=== PATIENT | female | born 1945 | race Caucasian/White ===

== ENCOUNTER 2017-04-23 23:18 | Emergency (ER) | payer MEDICARE ==
[~2017-04-23] VITALS: Ht 157.5 cm; Wt 92.3 kg
[2017-04-23 23:18] VITALS: BP 115/65
[~2017-04-23 23:18] MED LIST: ASPI-630 PO; BUSP10TA PO; CHOL500016 PO; CHOL500021 PO; CLON0.1T PO; CLON0.5T PO; CLOP75TA57 PO; CYAN10002 IJ; FLUO20CA16 PO; HYDR-2758 PO; HYDR12.53 PO; LISI-334 PO; LISI1TAB5 PO; METF500T9 PO; MIRT15TA PO; OLAN2.5T3 PO; PANT40TA3 PO; QUET25TA PO; ROPI0.5T PO; SIMV40TA3 PO
[2017-04-23] MEDS ORDERED: methylPREDNISolone SOD SUCC PF 125 MG/2 ML VIAL. IV ONE (23:30)
[2017-04-23] MEDS ORDERED: IPRATRPIUM/ALBUTEROL 0.5/2.5MG 3 ML NEBU. NEB ONE (23:30)
[2017-04-23] MEDS ORDERED: DOXYCYCLINE HYCLATE 100 MG in IV DEXTROSE 5% 100 ML IV ONE (23:30)
[2017-04-23] MEDS ORDERED: KETOROLAC 30 MG/ML VIAL. IV ONE (23:30)
[2017-04-23] MEDS ORDERED: ACETAMINOPHEN 325 MG TABLET PO ONE (23:30)
--- NOTE | 2017-04-24 00:33 | PHYS DOC ---
Past History Past Medical History: Anxiety, CVA, Diabetes, Hypertension Past Surgical History: Hysterectomy Alcohol Use: None Drug Use: None Adult General Chief Complaint Chief Complaint: BACK PAIN OR INJURY HPI HPI Patient is a 71-year-old female who presents to the ER today secondary to falling out of her recliner. Patient reports after falling of her recliner the recliner tipped over and hurt her. Patient reports pain to her lower back. Patient reports she has been able to stand since the episode. Patient denies any other symptomatology at this time. Patient has any head trauma. Patient has a loss of consciousness nausea vomiting double vision or blurred vision or altered mentation. Patient has any fevers shakes chills cough cold rhinorrhea. Patient has any abdominal discomfort or discharge her upper or lower semis. Patient has a loss of bowel or bladder function. Patient presents here today requesting assistance with pain management secondary to falling out of her recliner. She denies any hip pain or discomfort. Review of systems: Constitutional: Denies fever or chills Eyes: Denies change in visual acuity, redness, or eye pain HENT: Denies nasal congestion or sore throat Respiratory: Denies cough or shortness of breath All other systems were reviewed and found to be within normal limits, except as documented in this note. Physical exam: Constitutional: Well developed, well nourished, no acute distress, non-toxic appearance. HENT: Normocephalic, atraumatic, bilateral external ears normal, nose normal. Eyes: PERRLA, EOMI, conjunctiva normal, no discharge. Neck: Normal range of motion, no tenderness, supple, no stridor. Cardiovascular: Heart rate regular rhythm, Lungs & Thorax: Bilateral breath sounds clear to auscultation Abdomen: No abdominal distention. Skin: Warm, dry, no erythema, no rash. Back: Normal spinal curvature Extremities: No tenderness, no cyanosis, no clubbing, ROM intact, no edema. Neurologic: Alert and oriented X 3, normal motor function, normal sensory function, no focal deficits noted. Psychologic: Affect normal, judgement normal, mood normal. Patient's ER physical exam was most remarkable: Patient with mild diffuse tenderness to palpation to her lower back and her bilateral paraspinal area. Patient has no point CT or L-spine tenderness. Of note patient has multiple scratches and abrasions to her back which she reports her self-inflicted secondary to mental disturbances secondary to issues that she's had with her 2 granddaughters telling her that she is no longer family. Patient reports that this is a chronic condition for her and she wears gloves that she does not harm herself. She reports her physician is aware of this and he is assisting her with her. Patient denies any concerns regarding suicidality. Patient has no energy palpation to her left or right hip. Pelvis is stable to rock. Patient is able to flex and extend her lower 70s without significant difficulties or pain. Assessment and plan: 1. Low back pain secondary to fall out of a recliner. Patient reports fell on carpeted floor. Patient is neurologically intact. Patient be given morphine per her request and will be stable for discharged home. Patient has a safe ride home and feel safe going home at this time. Present with any signs or symptoms of an acute fracture. X-ray was offered however patient is just requesting pain medicines that she get some rest tonight. Morphine 4 mg IM is given. Current Medications Current Medications Current Medications Medications (Trade) Dose Ordered Sig/Bria Start Time Stop Time Status Last Admin Dose Admin Acetaminophen (Tylenol) 650 mg 1X ONCE 04/23/17 23:30 04/23/17 23:37 DC Albuterol/ Ipratropium (Duoneb) 3 ml 1X ONCE 04/23/17 23:30 04/23/17 23:37 DC Doxycycline Hyclate 100 mg/ Dextrose 100 ml @ 50 mls/hr 1X ONCE 04/23/17 23:30 04/23/17 23:37 DC Ketorolac Tromethamine (Toradol) 30 mg 1X ONCE 04/23/17 23:30 04/23/17 23:37 DC Methylprednisolone Sodium Succinate (SOLU-Medrol 125MG VIAL) 125 mg 1X ONCE 04/23/17 23:30 04/23/17 23:37 DC Allergies Allergies Allergies Coded Allergies Type Severity Reaction Last Updated Verified Penicillins Allergy Intermediate rash 03/03/14 Yes amitriptyline Allergy Intermediate rash 03/03/14 Yes lactose Allergy Intermediate GI UPSET 03/03/14 Yes prochlorperazine Allergy Intermediate muscle contraction 02/25/14 Yes I S O L A T I O N *CONTACT* Allergy Unknown 03/10/15 No EKG EKG [] Radiology/Procedures Radiology/Procedures [] Course & Med Decision Making Course & Med Decision Making Pertinent Labs and Imaging studies reviewed. (See chart for details) [] Dragon Disclaimer Dragon Disclaimer This electronic medical record was generated, in whole or in part, using a voice recognition dictation system. Departure Departure: Impression: Primary Impression: Low back pain Additional Impression: Fall Disposition: HOME, SELF-CARE Condition: IMPROVED Referrals: AMARI BETHEA MD (PCP) Patient Instructions: Back Pain, Adult Additional Instructions: You were seen and evaluated in the ER secondary to falling down having pain to her lower back. You'll be given an injection of morphine. Please return to the ER if your pain returns or if they have any other concerns Problem Qualifiers PEDRITO VALENZUELA MD Apr 24, 2017 00:33
[2017-04-24] MEDS ORDERED: MORPHINE SULFATE 5 MG/ML SYRINGE. ONE (00:53)
[2017-04-24] MEDS ORDERED: MORPHINE SULFATE 10 MG/ML SYRINGE. IM ONE (01:00)
[2017-04-24] MEDS ORDERED: ONDANSETRON ODT 4 MG TAB.RAPDIS PO ONE (01:00)
[2017-04-24] MEDS ORDERED: MORPHINE SULFATE 5 MG/ML SYRINGE. IM ONE (01:15)
== END 2017-04-24 01:20 | disposition home or self-care (01) ==
LOC: ER 23:18
DX: M54.5 Low back pain (principal); R41.82 Altered mental status, unspecified; R11.2 Nausea with vomiting, unspecified; E11.9 Type 2 diabetes mellitus without complications; I10 Essential (primary) hypertension; F41.9 Anxiety disorder, unspecified; Z86.73 Personal history of transient ischemic attack (TIA), and cerebral infarction without residual deficits; Z88.0 Allergy status to penicillin; Z88.8 Allergy status to other drugs, medicaments and biological substances; Z91.041 Radiographic dye allergy status; Z91.011 Allergy to milk products; W07.XXXA Fall from chair, initial encounter; Y93.89 Activity, other specified; Y99.8 Other external cause status; Y92.89 Other specified places as the place of occurrence of the external cause
CPT/HCPCS: 96372; 99283; J2270; Q0162

== ENCOUNTER 2018-04-17 17:58 | Inpatient (IN) | payer MEDICARE ==
[~2018-04-17] VITALS: Ht 157.5 cm; Wt 85.7 kg
[~2018-04-17 17:58] MED LIST changes: +HYDR-2155 PO; -HYDR-2758 PO; -HYDR12.53 PO; +HYDR12.572 PO
[2018-04-17] MEDS ORDERED: IV NORMAL SALINE 1,000ML 1,000 ML IV SCH (18:03)
--- NOTE | 2018-04-17 18:03 | ED.ADGEN ---
Past History Past Medical History: Anxiety, CVA, Diverticulitis, Diabetes, Hypertension, Other Past Surgical History: Hysterectomy Alcohol Use: None Drug Use: None Adult General Chief Complaint Chief Complaint ".. I ve been having some pain today.. down here... in my belly... It started after some nasty filling station food... I think it was a the nasty... Macaroni and cheese.... I did eat the [employer].... But denied had about a teaspoon of bright red blood and last stool..... I had bleeding down there before from hemorrhoids and diverticula... And some history of diverticulosis...." [facility] HPI Patient is a 72 year old female who presents with above hx and complaints lower pelvic pain more on the left and right red bleeding with last stool. Bleeding consistent approximately a teaspoon of bright red blood. Patient denies any constipation or diarrhea. Patient states she did have intake of some questionable food earlier in the day. No history of trauma. Patient does not remember her last colonoscopy. Patient denies any travel or specific ill contacts. Patient follows with Dr. Baker. Review of Systems Review of Systems Constitutional: Denies fever or chills [] Eyes: Denies change in visual acuity, redness, or eye pain [] HENT: Denies nasal congestion or sore throat [] Respiratory: Denies cough or shortness of breath [] Cardiovascular: No additional information not addressed in HPI [] GI: Denies abdominal pain, nausea, vomiting, complaints of bright red blood with last stool Musculoskeletal: Denies back pain or joint pain [] Integument: Denies rash or skin lesions [] Neurologic: Denies headache, focal weakness or sensory changes [] Endocrine: Denies polyuria or polydipsia [] All other systems were reviewed and found to be within normal limits, except as documented in this note. Family History Family History Noncontributory Current Medications Current Medications See nursing for home meds Allergies Allergies Allergies Coded Allergies Type Severity Reaction Last Updated Verified Penicillins Allergy Intermediate rash 03/03/14 Yes amitriptyline Allergy Intermediate rash 03/03/14 Yes lactose Allergy Intermediate GI UPSET 03/03/14 Yes prochlorperazine Allergy Intermediate muscle contraction 02/25/14 Yes I S O L A T I O N *CONTACT* Allergy Unknown 03/10/15 No Physical Exam Physical Exam Constitutional: Moderately acute distress, non-toxic appearance. [] HENT: Normocephalic, atraumatic, bilateral external ears normal, oropharynx moist, no oral exudates, nose normal. []Edentulous Eyes: PERRLA, EOMI, conjunctiva normal, no discharge. [] Neck: Normal range of motion, no tenderness, supple, no stridor. [] Cardiovascular:Heart rate regular rhythm, no murmur []PMI to the left Lungs & Thorax: Bilateral breath sounds breath sounds equal at apexes on auscultation [] Abdomen: Bowel sounds normal, soft, left lower pelvic tenderness, no masses, no pulsatile masses. [] Rectal shows hemorrhoids and a small fissure. Nose significant amount of bright red blood appreciated on rectal exam . Old surgery scars on abdomen. Mild rebound to left lower quadrant. Skin: Warm, dry, no erythema, no rash. Poor turgor Back: No tenderness, no CVA tenderness. Scoliosis Extremities: No tenderness, no cyanosis, no clubbing, ROM intact, no edema. [] arthritic changes Neurologic: Alert and oriented X 3, normal motor function, normal sensory function, no focal deficits noted. [] Psychologic: Affect anxious, judgement normal, mood normal. [] Current Patient Data Vital Signs Vital Signs Date Time Temp Pulse Resp B/P (MAP) Pulse Ox O2 Delivery O2 Flow Rate FiO2 04/17/18 18:00 97.6 77 16 100 Room Air EKG EKG My interpretation of EKG shows a sinus rhythm at 74 bpm. There is some left atrial enlargement. No findings acute STEMI with contralateral changes. There is some baseline artifact.. [] Radiology/Procedures Radiology/Procedures My interpretation of chest x-ray shows no significant findings on cardio and pulmonary roe. No lobar consolidation, pneumothorax or infiltrate. She does have borderline enlarged cardiac silhouette. Does have a very large hiatal hernia. Abdomen portion film shows no obvious bowel obstruction. Nonspecific bowel gas pattern. Does have marked lumbar scoliosis and degenerative joint changes. See formal report when available.[] Course & Med Decision Making Course & Med Decision Making Pertinent Labs and Imaging studies reviewed. (See chart for details). Discussed presentation, testing and treatment plan with . Plan admission for serial checks for active GI bleed. Serial checks of elevated troponin. Will keep nothing by mouth pending possible further evaluation of out let bleeding.. Patient Tiffanie Pt. admitted to Dr. Rogers [] Final Impression Final Impression 1. Hx. of GI Bleeding[]-out let or lower GI 2. Hx. Hemorrhoids 3. Hx. Diverticuli -colon 4. Elevated troponin 0.060 5. Hx. hiatal hernia 6. Hx. DM 7. Elevated BUN/ Creat 24/1.2 8. UTI Dragon Disclaimer Dragon Disclaimer This electronic medical record was generated, in whole or in part, using a voice recognition dictation system. ARJUN GARCIA MD Apr 17, 2018 18:03
--- NOTE | 2018-04-17 18:17 | EKG ---
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
--- NOTE | 2018-04-17 18:24 | RAD ---
Acute abdomen series HISTORY: Abdominal pain, bloody stools COMPARISON: November 10, 2015 chest radiograph and September 26, 2010 KUB FINDINGS: Single view of the chest and single supine and upright views of the abdomen are submitted. There is again large hiatal hernia. Heart size is similar. There is lung hyperexpansion. There is no lobar consolidation, pleural fluid, pneumothorax. No free air is identified. There is lumbar levoscoliosis. There is a nonobstructive bowel gas pattern. IMPRESSION: 1. There is a nonobstructive bowel gas pattern. There is a fairly large hiatal hernia. Electronically signed by: Dereck Park MD (04/17/2018 6:20 PM) [facility]
[2018-04-17] MEDS ORDERED: ONDANSETRON PF 4 MG/2 ML VIAL. IV ONE (18:30)
[2018-04-17] MEDS ORDERED: FAMOTIDINE 20 MG/2 ML VIAL IVP ONE (18:30)
[2018-04-17 18:51] LABS: BASO # 0.1 x10^3/uL (0.0-0.2); BASO % 1 % (0-3); EOS # 0.6 x10^3/uL (0.0-0.7); EOS % 10 % (0-3); HEMATOCRIT 43.4 % (36.0-47.0); HEMOGLOBIN 14.5 g/dL (12.0-15.5); LYMPH # 0.9 x10^3/uL (1.0-4.8); LYMPH % 15 % (24-48); MEAN CORPUSCULAR HEMOGLOBIN 31 pg (25-35); MEAN CORPUSCULAR HGB CONC 33 g/dL (31-37); MEAN CORPUSCULAR VOLUME 94 fL (79-100); MONO # 0.5 x10^3/uL (0.0-1.1); MONO % 8 % (0-9); NEUT # 4.1 x10^3uL (1.8-7.7); NEUT % 67 % (31-73); PLATELET COUNT 295 x10^3/uL (140-400); RED BLOOD COUNT 4.63 x10^6/uL (3.50-5.40); RED CELL DISTRIBUTION WIDTH 13.5 % (11.5-14.5); WHITE BLOOD COUNT 6.1 x10^3/uL (4.0-11.0)
[2018-04-17 19:02] LABS: ALBUMIN 3.4 g/dL (3.4-5.0); CALCIUM 9.7 mg/dL (8.5-10.1); CREATININE 1.2 mg/dL (0.6-1.0); DIRECT BILIRUBIN 0.1 mg/dL (0.0-0.2); GFR 44.3; POTASSIUM 4.4 mmol/L (3.5-5.1); TOTAL BILIRUBIN 0.3 mg/dL (0.2-1.0); TOTAL PROTEIN 6.8 g/dL (6.4-8.2)
[2018-04-17 19:29] LABS: BACTERIA,URINE FEW /HPF (0-FEW); BILIRUBIN,URINE NEG (NEG); CLARITY,URINE HAZY; COLOR,URINE YELLOW; GLUCOSE,URINE NEG (NEG); NITRITE,URINE NEG (NEG); SQUAMOUS EPITHELIAL CELL,UR MANY /LPF; UROBILINOGEN,URINE 0.2 mg/dL (0.2 mg/dL)
[2018-04-17] MEDS ORDERED: ONDANSETRON PF 4 MG/2 ML VIAL. IV PRN (19:30)
[2018-04-17] MEDS ORDERED: ACETAMINOPHEN 500 MG TABLET PO ONE (20:00)
[2018-04-17 20:30] VITALS: BP 157/80
[2018-04-17] MEDS ORDERED: DIPH25CA58 PO (20:54)
[2018-04-17] MEDS ORDERED: CARV6.2541 PO (20:56)
[2018-04-17] MEDS ORDERED: ASPI81TA59 PO (20:56)
[2018-04-17] MEDS ORDERED: DOCU-109 PO (20:56)
[2018-04-17] MEDS ORDERED: FERR240T11 PO (20:57)
[2018-04-17] MEDS ORDERED: levoFLOXacin 500 MG TABLET PO ONE (21:00)
[2018-04-17] MEDS ORDERED: SMZ/TMP 800/160MG TABLET. PO SCH (21:00)
[2018-04-17] MEDS: FAMOTIDINE 20 MG/2 ML VIAL IVP SCH (21:03)
[2018-04-17] MEDS: IV RINGERS SOLUTION,LACTATED 1,000 ML IV SCH (21:03)
[2018-04-17] MEDS: LACTOBACILLUS RHAMNOSUS GG 1 CAPSULE. PO SCH (21:03)
[2018-04-17] MEDS: metroNIDAZOLE 500 MG TABLET PO SCH (21:03)
[2018-04-17] MEDS ORDERED: clonazePAM 0.5 MG TABLET PO PRN (22:00)
[2018-04-17 22:12] LABS: FECAL OB PT POSITIVE (NEG)
[2018-04-17] MEDS ORDERED: DOCUSATE SODIUM 100 MG CAPSULE PO PRN (22:15)
[2018-04-17] MEDS: busPIRone 10 MG TABLET. PO SCH (22:20)
[2018-04-17] MEDS: SIMVASTATIN 40 MG TABLET. PO SCH (22:20)
[2018-04-17] MEDS: diphenhydrAMINE HCL 25 MG CAPSULE PO SCH (22:21)
[2018-04-17] MEDS: QUEtiapine 25 MG TABLET. PO SCH (22:21)
[2018-04-17] MEDS: rOPINIRole 0.5 MG TABLET. PO SCH (22:21)
[2018-04-17] MEDS: cloNIDine HCL 0.1 MG TABLET PO SCH (22:22)
[2018-04-17] MEDS ORDERED: ENOXAPARIN 40 MG/0.4 ML SYRINGE. SQ SCH (23:00)
[2018-04-17 23:08] VITALS: BP 142/78
[2018-04-18] MEDS: IV RINGERS SOLUTION,LACTATED 1,000 ML IV SCH ×4 (04:00→20:30)
[2018-04-18] MEDS: metroNIDAZOLE 500 MG TABLET PO SCH ×3 (05:06→21:27)
[2018-04-18 05:08] VITALS: BP 157/88
[2018-04-18 06:34] LABS: CREATININE 0.9 mg/dL (0.6-1.0); GFR 61.7; POTASSIUM 3.5 mmol/L (3.5-5.1)
[2018-04-18 06:46] LABS: BASO # 0.1 x10^3/uL (0.0-0.2); BASO % 1 % (0-3); EOS # 0.5 x10^3/uL (0.0-0.7); EOS % 8 % (0-3); HEMATOCRIT 40.7 % (36.0-47.0); HEMOGLOBIN 13.3 g/dL (12.0-15.5); LYMPH # 1.1 x10^3/uL (1.0-4.8); LYMPH % 19 % (24-48); MEAN CORPUSCULAR HEMOGLOBIN 31 pg (25-35); MEAN CORPUSCULAR HGB CONC 33 g/dL (31-37); MEAN CORPUSCULAR VOLUME 96 fL (79-100); MONO # 0.5 x10^3/uL (0.0-1.1); MONO % 8 % (0-9); NEUT # 3.9 x10^3uL (1.8-7.7); NEUT % 64 % (31-73); PLATELET COUNT 249 x10^3/uL (140-400); RED BLOOD COUNT 4.26 x10^6/uL (3.50-5.40); RED CELL DISTRIBUTION WIDTH 13.5 % (11.5-14.5); WHITE BLOOD COUNT 6.1 x10^3/uL (4.0-11.0)
[2018-04-18] MEDS ORDERED: metFORMIN 500 MG TABLET PO SCH (08:00)
[2018-04-18] MEDS ORDERED: ASPIRIN 81 MG TAB.CHEW PO SCH (08:00)
[2018-04-18] MEDS ORDERED: clonazePAM 1 MG TABLET PO PRN (08:30)
[2018-04-18] MEDS: FAMOTIDINE 20 MG/2 ML VIAL IVP SCH (08:47)
[2018-04-18] MEDS: rOPINIRole 0.5 MG TABLET. PO SCH ×3 (09:00→21:14)
[2018-04-18] MEDS ORDERED: IOHEXOL 300 MG/ML 75 ML VIAL. IV ONE (09:00)
[2018-04-18] MEDS ORDERED: IOHEXOL 240 MG/ML 50ML VIAL. PO ONE (09:00)
[2018-04-18] MEDS ORDERED: CONTRAST GIVEN MC PRN (09:00)
[2018-04-18] MEDS: QUEtiapine 25 MG TABLET. PO SCH ×4 (09:00→21:15)
--- NOTE | 2018-04-18 10:14 | PDOC2 ---
CONSULT Date of Admission DATE: 04/18/18 TIME: 10:13 Reason for Consult: elevated trop Problem List Problems Medical Problems: (1) GI bleeding Status: Acute (2) Urinary tract infection Status: Acute History of Present Illness Ms Harris is a 72 year old female who presented to the ED with complaints of pelvic, lower abdominal pain with bright red blood in stool. Routine troponin was mildly elevated so consult was called. She denies any chest pain, dyspnea, congestive symptoms, palpitations, lightheadedness or syncope. She reports abd pain that started after eating some food obtained from a gas station. She denies vomiting or diarrhea. She denies fever or chills. Today she reports feeling "fine". She was noted to have a UTI and is currently on antibiotics for this. She is a fairly poor historian and says her daughter keeps track of her healthcare issues. Daughter is expected in about an hour. Cardiovascular: HTN, hyperipidemia Pulmonary: Other (TAMMIE on cpap) CENTRAL NERVOUS SYSTEM: CVA, Dementia, Migraine, TIA GI: GERD Heme/Onc: Anemia NOS Psych: Anxiety, Bipolar, Depression, Other (seof mutilation) Infectious disease: Other (MRSA) Endocrine: Diabetes Past Surgical History: Appendectomy, Tonsillectomy, Hysterectomy Family History: Cancer Social History Remote smoking, no illicit drugs, no significant ETOH Current Medications Current Medications Sodium Chloride 1,000 ml @ 100 mls/hr Q10H IV Last administered on 04/17/18at 18:53; Start 04/17/18 at 18:03; Stop 04/18/18 at 04:02; Status DC Ondansetron HCl (Zofran) 4 mg 1X ONCE IV Last administered on 04/17/18at 18:57 ; Start 04/17/18 at 18:30; Stop 04/17/18 at 18:31; Status DC Famotidine (Pepcid Vial) 20 mg 1X ONCE IVP Last administered on 04/17/18at 18: 58; Start 04/17/18 at 18:30; Stop 04/17/18 at 18:31; Status DC Ondansetron HCl (Zofran) 4 mg PRN Q4HRS PRN IV NAUSEA/VOMITING; Start at 19:30; Stop 04/18/18 at 19:29 Lactated Ringer's 1,000 ml @ 160 mls/hr Q6H15M IV Last administered on at 08:48; Start 04/17/18 at 19:30 Famotidine (Pepcid Vial) 20 mg BID IVP Last administered on 04/18/18at 08:47; Start 04/17/18 at 21:00 Acetaminophen (Tylenol) 1,000 mg 1X ONCE PO Last administered on 04/17/18at 20 :10; Start 04/17/18 at 20:00; Stop 04/17/18 at 20:01; Status DC Trimethoprim/ Sulfamethoxazole (Bactrim Ds) 1 tab BID PO Last administered on 04/17/18at 21:03; Start 04/17/18 at 21:00; Stop 04/18/18 at 08:31; Status DC Levofloxacin (Levaquin) 500 mg 1X ONCE PO Last administered on 04/17/18at 20: 12; Start 04/17/18 at 21:00; Stop 04/17/18 at 21:01; Status DC Metronidazole (Flagyl) 500 mg Q8HRS PO Last administered on 04/18/18at 05:06; Start 04/17/18 at 22:00 Lactobacillus Rhamnosus (Culturelle) 1 cap BID PO Last administered on at 21:03; Start 04/17/18 at 21:00 Levofloxacin (Levaquin) 250 mg Q24H PO ; Start 04/18/18 at 14:00 Influenza Virus Vaccine (Afluria Trivalent [id number] Syringe) 0.5 ml ONCE ONCE VAX IM ; Start 04/18/18 at 09:00; Stop 04/18/18 at 09:02; Status DC Carvedilol (Coreg) 6.25 mg BIDWMEALS PO ; Start 04/18/18 at 08:00 Clonazepam (KlonoPIN) 0.5 mg PRN Q8HRS PRN PO ANXIETY / AGITATION Last administered on 04/18/18at 06:52; Start 04/17/18 at 22:00; Stop 04/18/18 at 08 :31; Status DC Clonidine HCl (Catapres) 0.1 mg BID PO Last administered on 04/17/18at 22:22; Start 04/17/18 at 23:00 Clopidogrel Bisulfate (Plavix) 75 mg DAILY PO ; Start 04/18/18 at 09:00 Diphenhydramine HCl (Benadryl) 50 mg HS PO Last administered on 04/17/18at 22: 21; Start 04/17/18 at 23:00 Hydrochlorothiazide (Microzide) 12.5 mg DAILY PO ; Start 04/18/18 at 09:00 Simvastatin (Zocor) 40 mg HS PO Last administered on 04/17/18at 22:20; Start 04/17/18 at 23:00 Aspirin (Children'S Aspirin) 81 mg DAILYWBKFT PO ; Start 04/18/18 at 08:00; Stop 04/18/18 at 08:31; Status DC Buspirone HCl (Buspar) 10 mg BID PO Last administered on 04/17/18at 22:20; Start 04/17/18 at 23:00 Docusate Sodium (Colace) 100 mg PRN DAILY PRN PO CONSTIPATION; Start 04/17/18 at 22:15 Ferrous Sulfate (Feosol) 325 mg DAILYWBKFT PO ; Start 04/18/18 at 08:00 Fluoxetine HCl (PROzac) 20 mg DAILY PO ; Start 04/18/18 at 09:00 Metformin HCl (Glucophage) 500 mg BIDWMEALS PO ; Start 04/18/18 at 08:00; Stop 04/18/18 at 08:52; Status DC Pantoprazole Sodium (Protonix) 40 mg DAILYAC PO ; Start 04/18/18 at 07:30 Quetiapine Fumarate (SEROquel) 25 mg QID PO Last administered on 04/17/18at 22: 21; Start 04/17/18 at 23:00 Ropinirole HCl (Requip) 0.5 mg TID PO Last administered on 04/17/18at 22:21; Start 04/17/18 at 23:00 Enoxaparin Sodium (Lovenox 40mg Syringe) 40 mg Q24H SQ Last administered on at 22:22; Start 04/17/18 at 23:00; Stop 04/18/18 at 08:31; Status DC Clonazepam (KlonoPIN) 1 mg PRN Q8HRS PRN PO ANXIETY / AGITATION; Start at 08:30 Acetaminophen (Tylenol) 500 mg PRN Q6HRS PRN PO PAIN / TEMP; Start 04/18/18 at 08:45 Iohexol (Omnipaque 240 Mg/ml) 50 ml 1X ONCE PO Last administered on at 09:50; Start 04/18/18 at 09:00; Stop 04/18/18 at 09:02; Status DC Iohexol (Omnipaque 300 Mg/ml) 75 ml 1X ONCE IV Last administered on at 09:49; Start 04/18/18 at 09:00; Stop 04/18/18 at 09:02; Status DC Metformin HCl (Glucophage) 500 mg BIDWMEALS PO ; Start 04/20/18 at 08:00 Info (Do NOT chart on this entry -- for MONITORING) 1 each PRN DAILY PRN MC SEE COMMENTS; Start 04/18/18 at 09:00; Stop 04/20/18 at 08:59 Active Scripts Active Reported Iron (Ferrous Gluconate) 240 Mg Tablet 240 Mg PO DAILY Children's Aspirin (Aspirin) 81 Mg Tab.chew 81 Mg PO DAILY Colace (Docusate Sodium) 100 Mg Capsule 1 Cap PO DAILY PRN Carvedilol (Carvedilol) 6.25 Mg Tablet 6.25 Mg PO BIDWMEALS Benadryl (Diphenhydramine Hcl) 25 Mg Capsule 50 Mg PO HS Clonidine Hcl 0.1 Mg Tablet 0.1 Mg PO BID LAST DOSE GIVEN: DATE: TIME: NEXT DOSE DUE: DATE: TIME: Plavix (Clopidogrel Bisulfate) 75 Mg Tablet 75 Mg PO DAILY LAST DOSE GIVEN: DATE: TIME: NEXT DOSE DUE: DATE: TIME: Buspirone Hcl 10 Mg Tablet 10 Mg PO BID LAST DOSE GIVEN: DATE: TIME: NEXT DOSE DUE: DATE: TIME: Protonix (Pantoprazole Sodium) 40 Mg Tablet.dr 40 Mg PO DAILY LAST DOSE GIVEN: DATE: TIME: NEXT DOSE DUE: DATE: TIME: Hydrochlorothiazide Capsule (Hydrochlorothiazide) 12.5 Mg Capsule 12.5 Mg PO DAILY LAST DOSE GIVEN: DATE: TIME: NEXT DOSE DUE: DATE: TIME: Quetiapine Fumarate 25 Mg Tablet 25 Mg PO QID LAST DOSE GIVEN: DATE: TIME: NEXT DOSE DUE: DATE: TIME: Metformin Hcl Er (Metformin Hcl) 500 Mg Tab.er.24h 500 Mg PO BID LAST DOSE GIVEN: DATE: TIME: NEXT DOSE DUE: DATE: TIME: Klonopin (Clonazepam) 0.5 Mg Tablet 0.5 Mg PO Q8HRS PRN LAST DOSE GIVEN: DATE: TIME: NEXT DOSE DUE: DATE: TIME: Prozac (Fluoxetine Hcl) 20 Mg Capsule 20 Mg PO DAILY LAST DOSE GIVEN: DATE: TIME: NEXT DOSE DUE: DATE: TIME: Simvastatin 40 Mg Tablet 40 Mg PO HS LAST DOSE GIVEN: DATE: TIME: NEXT DOSE DUE: DATE: TIME: Requip (Ropinirole Hcl) 0.5 Mg Tablet 0.5 Mg PO TID LAST DOSE GIVEN: DATE: TIME: NEXT DOSE DUE: DATE: TIME: Allergies: Coded Allergies: Penicillins (Verified Allergy, Intermediate, rash, 03/03/14) amitriptyline (Verified Allergy, Intermediate, rash, 03/03/14) lactose (Verified Allergy, Intermediate, GI UPSET, 03/03/14) PER PATIENT prochlorperazine (Verified Allergy, Intermediate, muscle contraction, ) I S O L A T I O N *CONTACT* (Unverified Allergy, Unknown, 03/10/15) 7-8-11 +MRSA nasal screen Review of System symptoms as listed otherwise she denies complaints Gastrointestinal: YES: Abdominal Pain Genitourinary: YES: Dysuria, Urinary Frequency/urgency General: Alert, Cooperative, No acute distress HEENT: Atraumatic, EOMI, Mucous membr. moist/pink Lungs: Clear to auscultation Heart: Normal S1, Normal S2, Other (no gallops, clicks or rubs) Abdomen: Normal bowel sounds, Soft, No tenderness Extremities: No cyanosis, No edema, Normal pulses Neuro: Normal speech, Other (gait mildly unsteady while up with PT) Psych/Mental Status: Mental status NL, Mood NL VITALS Vital Signs Date Time Temp Pulse Resp B/P (MAP) Pulse Ox O2 Delivery O2 Flow Rate FiO2 04/18/18 08:00 Room Air 04/18/18 05:08 97.6 70 18 157/88 (111) 95 Labs Laboratory Tests Test 04/17/18 18:13 04/17/18 18:23 04/17/18 18:38 04/17/18 22:00 Stool Occult Blood Positive (NEG) White Blood Count 6.1 x10^3/uL (4.0-11.0) Red Blood Count 4.63 x10^6/uL (3.50-5.40) Hemoglobin 14.5 g/dL (12.0-15.5) Hematocrit 43.4 % (36.0-47.0) Mean Corpuscular Volume 94 fL (79-100) Mean Corpuscular Hemoglobin 31 pg (25-35) Mean Corpuscular Hemoglobin Concent 33 g/dL (31-37) Red Cell Distribution Width 13.5 % (11.5-14.5) Platelet Count 295 x10^3/uL (140-400) Neutrophils (%) (Auto) 67 % (31-73) Lymphocytes (%) (Auto) 15 % (24-48) Monocytes (%) (Auto) 8 % (0-9) Eosinophils (%) (Auto) 10 % (0-3) Basophils (%) (Auto) 1 % (0-3) Neutrophils # (Auto) 4.1 x10^3uL (1.8-7.7) Lymphocytes # (Auto) 0.9 x10^3/uL (1.0-4.8) Monocytes # (Auto) 0.5 x10^3/uL (0.0-1.1) Eosinophils # (Auto) 0.6 x10^3/uL (0.0-0.7) Basophils # (Auto) 0.1 x10^3/uL (0.0-0.2) Prothrombin Time 10.3 SEC (9.4-11.4) Prothromb Time International Ratio 1.0 (0.9-1.1) Activated Partial Thromboplast Time 24 SEC (23-33) Sodium Level 140 mmol/L (136-145) Potassium Level 4.4 mmol/L (3.5-5.1) Chloride Level 102 mmol/L (98-107) Carbon Dioxide Level 26 mmol/L (21-32) Anion Gap 12 (6-14) Blood Urea Nitrogen 24 mg/dL (7-20) Creatinine 1.2 mg/dL (0.6-1.0) Estimated GFR (Cockcroft-Gault) 44.3 Glucose Level 122 mg/dL (70-99) Calcium Level 9.7 mg/dL (8.5-10.1) Total Bilirubin 0.3 mg/dL (0.2-1.0) Direct Bilirubin 0.1 mg/dL (0.0-0.2) Aspartate Amino Transf (AST/SGOT) 16 U/L (15-37) Alanine Aminotransferase (ALT/SGPT) 14 U/L (14-59) Alkaline Phosphatase 164 U/L (46-116) Creatine Kinase 57 U/L (26-192) Troponin I Quantitative 0.060 ng/mL (0-0.055) 0.068 ng/mL (0-0.055) Total Protein 6.8 g/dL (6.4-8.2) Albumin 3.4 g/dL (3.4-5.0) Amylase Level 31 U/L (25-115) Lipase 145 U/L (73-393) Urine Collection Type Unknown Urine Color Yellow Urine Clarity Hazy Urine pH 5.0 Urine Specific Mobile 1.025 Urine Protein Neg (NEG-TRACE) Urine Glucose (UA) Neg mg/dL (NEG) Urine Ketones (Stick) Trace mg/dL (NEG) Urine Blood Neg (NEG) Urine Nitrite Neg (NEG) Urine Bilirubin Neg (NEG) Urine Urobilinogen Dipstick 0.2 mg/dL (0.2 mg/dL) Urine Leukocyte Esterase Large (NEG) Urine RBC 3-5 /HPF (0-2) Urine WBC 11-20 /HPF (0-4) Urine Squamous Epithelial Cells Many /LPF Urine Bacteria Few /HPF (0-FEW) Urine Mucus Slight /LPF Test 04/18/18 06:10 04/18/18 07:30 White Blood Count 6.1 x10^3/uL (4.0-11.0) Red Blood Count 4.26 x10^6/uL (3.50-5.40) Hemoglobin 13.3 g/dL (12.0-15.5) Hematocrit 40.7 % (36.0-47.0) Mean Corpuscular Volume 96 fL (79-100) Mean Corpuscular Hemoglobin 31 pg (25-35) Mean Corpuscular Hemoglobin Concent 33 g/dL (31-37) Red Cell Distribution Width 13.5 % (11.5-14.5) Platelet Count 249 x10^3/uL (140-400) Neutrophils (%) (Auto) 64 % (31-73) Lymphocytes (%) (Auto) 19 % (24-48) Monocytes (%) (Auto) 8 % (0-9) Eosinophils (%) (Auto) 8 % (0-3) Basophils (%) (Auto) 1 % (0-3) Neutrophils # (Auto) 3.9 x10^3uL (1.8-7.7) Lymphocytes # (Auto) 1.1 x10^3/uL (1.0-4.8) Monocytes # (Auto) 0.5 x10^3/uL (0.0-1.1) Eosinophils # (Auto) 0.5 x10^3/uL (0.0-0.7) Basophils # (Auto) 0.1 x10^3/uL (0.0-0.2) Sodium Level 136 mmol/L (136-145) Potassium Level 3.5 mmol/L (3.5-5.1) Chloride Level 100 mmol/L (98-107) Carbon Dioxide Level 29 mmol/L (21-32) Anion Gap 7 (6-14) Blood Urea Nitrogen 22 mg/dL (7-20) Creatinine 0.9 mg/dL (0.6-1.0) Estimated GFR (Cockcroft-Gault) 61.7 Glucose Level 103 mg/dL (70-99) Calcium Level 9.0 mg/dL (8.5-10.1) Glucose (Fingerstick) 102 mg/dL (70-99) Images EKG sinus rhythm, no acute st/t abnormalities Assessment/Plan 1. trop elevation - minimal elevation, no anginal symptoms, no acute EKG changes. 2. rectal bleeding - per PCP 3. UTI - per pcp 4. HTN - resume home meds 5. HLD - continue statin, check lipids. Will check echo for LV function, structure and wall motion. No anginal symptoms currently. RF reduction and consider outpatient MPI once acute issues resolved. KIKI GUY DIRECT CARE SUPERVISOR Apr 18, 2018 10:14
[2018-04-18 10:45] VITALS: BP 144/83
--- NOTE | 2018-04-18 11:51 | RAD ---
PQRS Compliance Statement: One or more of the following individualized dose reduction techniques were utilized for this examination: 1. Automated exposure control 2. Adjustment of the mA and/or kV according to patient size 3. Use of iterative reconstruction technique CT abdomen/pelvis with contrast 04/18/2018 9:41 AM INDICATION: GI bleed. COMPARISON: Acute abdominal series April 17, 2018 TECHNIQUE: Multiple axial CT images of the abdomen and pelvis were obtained after the intravenous administration of nonionic contrast. Coronal and sagittal reformats are provided. FINDINGS: Mild interstitial changes are identified at the lung bases. There is a moderate to large sized hiatal hernia with nearly intrathoracic stomach. Heart size is borderline enlarged. No suspicious hepatic lesions are identified. The spleen is nonenlarged. Adrenal glands are normal in appearance. There is mild fatty atrophy of the pancreas. No suspicious pancreatic lesion. Gallbladder is normal in appearance without adjacent inflammation. Abdominal aorta is aneurysmal measuring up to 2.6 x 2.6 cm. There is dense calcified atheromatous plaque. There are no pathologically enlarged lymph nodes in abdomen and pelvis. There is no free fluid or free intraperitoneal air. The kidneys enhance symmetrically. There is no suspicious renal mass. There is no hydronephrosis. There are no suspected calculi within the kidneys, ureters or urinary bladder. Bilateral renal parapelvic cysts are present. There is moderate colonic diverticulosis. There is mild circumferential wall thickening involving a segment of the mid transverse colon, likely secondary to underdistention. Oral contrast was administered. Opacified bowel loops demonstrate normal mucosal fold pattern. Appendix is not definitively visualized. No pericecal inflammatory changes are identified. Urinary bladder is within normal limits given degree of distention. No suspicious pelvic masses are identified. There is levoconvex scoliosis of the lumbar spine. Compression deformities are identified in L3 and L4 with vertebral plana at L4 and 75 percent height loss at L3. Findings appear chronic. IMPRESSION: 1. No evidence for bowel obstruction or inflammation. 2. Moderate colonic diverticulosis without adjacent inflammation. 3. Moderate to large sized hiatal hernia with partial intrathoracic stomach. 4. Infrarenal abdominal aortic aneurysm measuring up to 2.6 cm. Electronically signed by: Karly Lemus MD (04/18/2018 11:47 AM) [id number]
--- NOTE | 2018-04-18 12:46 | CARD ---
MR#: [id number] Date of Study: 04/18/2018 Ordering Physician: KIKI GUY, Referring Physician: AMARI BETHEA, Tech: Татьяна Vega RDCS APPROVED REPORT EXAM: Two-dimensional and M-mode echocardiogram with Doppler and color Doppler. Other Information Quality : Technically LimitedHR: 75bpm Rhythm : NSRTechnically limited study due to body habitus. INDICATION Elevated Troponin 2D DIMENSIONS Left Atrium(2D)3.2 (1.6-4.0cm)IVSd1.5 (0.7-1.1cm) Aortic Root(2D)2.4 (2.0-3.7cm)LVDd4.2 (3.9-5.9cm) LVOT Diameter1.8 (1.8-2.4cm)PWd0.8 (0.7-1.1cm) LVDs3.0 (2.5-4.0cm)FS (%) 29.8 % SV45.2 mlLVEF(%)57.3 (>50%) M-Mode DIMENSIONS Left Atrium(MM)3.62 (2.5-4.0cm)Aortic Root2.74 (2.2-3.7cm) Aortic Valve AoV Peak Zan.198.8cm/sAoV VTI50.0cm AO Peak GR.15.8mmHgLVOT Peak Zan.92.4cm/s LVOT VTI 26.57cmAO Mean GR.8mmHg NICHOLAS (VMAX)1.37vz0WSX (VTI)1.33cm2 Mitral Valve MV E Fudglrjc66.0cm/sMV DECEL RNXF967tf MV A Cybhiinv457.0cm/sE/A Ratio0.7 MV A Vwtvmbqs212rt Pulmonary Valve PV Peak Kqhwnpqw59.1cm/sPV Peak Grad.3mmHg Tricuspid Valve TR P. Dhsjbvju271bg/sRAP FOYUSXOP9ssNh TR Peak Gr.70qyBfEBVU52piCj Pulmonary Vein S1 Zbjzdpjd89.0cm/sD2 Uamkpkpk39.9cm/s LEFT VENTRICLE The left ventricle is normal size. Proximal septal thickening is noted. The left ventricular systolic function is normal and the ejection fraction is within normal range. The Ejection Fraction is 55-60% . There is normal LV segmental wall motion. Tissue Doppler imaging reveals mild left ventricular eagle tolic dysfunction. RIGHT VENTRICLE The right ventricle is normal size. There is normal right ventricular wall thickness. The right ventr icular systolic function is normal. ATRIA The left atrium size is normal. The right atrium size is normal. The interatrial septum is intact wit h no evidence for an atrial septal defect or patent foramen ovale as noted on 2-D or Doppler imaging. AORTIC VALVE The aortic valve is mildly calcified. The aortic valve is trileaflet. Doppler and Color Flow revealed trace aortic regurgitation. There is no significant aortic valvular stenosis. MITRAL VALVE The mitral valve is thickened but opens well. There is no evidence of mitral valve prolapse. There is no mitral valve stenosis. Doppler and Color-flow revealed trace mitral regurgitation. TRICUSPID VALVE The tricuspid valve is normal in structure and function. Doppler and Color Flow revealed trace tricus pid regurgitation. The PA pressure was estimated at 21 mmHg. There is no tricuspid valve prolapse or vegetation. There is no tricuspid valve stenosis. PULMONIC VALVE Pulmonic valve not well visualized. GREAT VESSELS The aortic root is normal in size. The ascending aorta is normal in size. The IVC is normal in size a nd collapses >50% with inspiration. PERICARDIAL EFFUSION There is no evidence of significant pericardial effusion. Critical Notification Critical Value: No <Conclusion> The left ventricular systolic function is normal and the ejection fraction is within normal range. Th e Ejection Fraction is 55-60%. There is normal LV segmental wall motion. Signed by : Idris Lao, Electronically Approved : 04/18/2018 12:45:14
[2018-04-18] MEDS: FLUoxetine HCL 20 MG CAPSULE PO SCH (13:31)
[2018-04-18] MEDS: CARVEDILOL 6.25 MG TABLET PO SCH ×2 (13:32→17:34)
[2018-04-18] MEDS: PANTOPRAZOLE 40 MG TABLET. PO SCH (13:32)
[2018-04-18] MEDS: hydroCHLOROthiazide 12.5 MG CAPSULE PO SCH (13:32)
[2018-04-18] MEDS: CLOPIDOGREL BISULFATE 75 MG TABLET PO SCH (13:32)
[2018-04-18] MEDS: cloNIDine HCL 0.1 MG TABLET PO SCH ×2 (13:32→21:15)
[2018-04-18] MEDS: FERROUS SULFATE 325 MG TABLET. PO SCH (13:32)
[2018-04-18] MEDS: LACTOBACILLUS RHAMNOSUS GG 1 CAPSULE. PO SCH ×2 (13:32→21:14)
[2018-04-18] MEDS: busPIRone 10 MG TABLET. PO SCH ×2 (13:33→21:15)
[2018-04-18] MEDS ORDERED: levoFLOXacin 250 MG TABLET PO SCH (14:00)
[2018-04-18] MEDS: ACETAMINOPHEN 500 MG TABLET PO PRN (14:47)
[2018-04-18 14:53] VITALS: BP 144/73
[2018-04-18 20:24] VITALS: BP 161/84
[2018-04-18] MEDS: FAMOTIDINE 20 MG TABLET PO SCH (21:15)
[2018-04-18] MEDS: SIMVASTATIN 40 MG TABLET. PO SCH (21:16)
[2018-04-18] MEDS: diphenhydrAMINE HCL 25 MG CAPSULE PO SCH (21:27)
[2018-04-18] MEDS: MUPIROCIN 2% TOPICAL OINTMENT 22GM TUBE. TP SCH (21:27)
[2018-04-18 23:00] VITALS: BP 132/78
[2018-04-19] MEDS: metroNIDAZOLE 500 MG TABLET PO SCH (05:35)
[2018-04-19] MEDS: IV RINGERS SOLUTION,LACTATED 1,000 ML IV SCH ×2 (05:36→08:11)
[2018-04-19 05:42] VITALS: BP 145/92
[2018-04-19] MEDS ORDERED: levoFLOXacin 500 MG TABLET PO SCH (06:00)
[2018-04-19 07:31] LABS: BASO % 1 % (0-3); EOS # 0.7 x10^3/uL (0.0-0.7); EOS % 12 % (0-3); HEMOGLOBIN 12.7 g/dL (12.0-15.5); LYMPH # 0.5 x10^3/uL (1.0-4.8); LYMPH % 9 % (24-48); MEAN CORPUSCULAR HEMOGLOBIN 32 pg (25-35); MEAN CORPUSCULAR HGB CONC 34 g/dL (31-37); MEAN CORPUSCULAR VOLUME 94 fL (79-100); MONO # 0.4 x10^3/uL (0.0-1.1); MONO % 7 % (0-9); NEUT % 72 % (31-73); PLATELET COUNT 225 x10^3/uL (140-400); RED BLOOD COUNT 4.05 x10^6/uL (3.50-5.40); RED CELL DISTRIBUTION WIDTH 13.4 % (11.5-14.5); WHITE BLOOD COUNT 5.6 x10^3/uL (4.0-11.0)
[2018-04-19 07:33] LABS: CALCIUM 8.8 mg/dL (8.5-10.1); CREATININE 1.2 mg/dL (0.6-1.0); GFR 44.3; POTASSIUM 3.9 mmol/L (3.5-5.1)
[2018-04-19] MEDS: rOPINIRole 0.5 MG TABLET. PO SCH (08:05)
[2018-04-19] MEDS: LACTOBACILLUS RHAMNOSUS GG 1 CAPSULE. PO SCH (08:05)
[2018-04-19] MEDS: FAMOTIDINE 20 MG TABLET PO SCH (08:06)
[2018-04-19] MEDS: FERROUS SULFATE 325 MG TABLET. PO SCH (08:08)
[2018-04-19] MEDS: busPIRone 10 MG TABLET. PO SCH (08:08)
[2018-04-19] MEDS: CLOPIDOGREL BISULFATE 75 MG TABLET PO SCH (08:09)
[2018-04-19] MEDS: PANTOPRAZOLE 40 MG TABLET. PO SCH (08:09)
[2018-04-19] MEDS: FLUoxetine HCL 20 MG CAPSULE PO SCH (08:09)
[2018-04-19] MEDS: cloNIDine HCL 0.1 MG TABLET PO SCH (08:09)
[2018-04-19 08:10] VITALS: BP 145/92
[2018-04-19] MEDS: CARVEDILOL 6.25 MG TABLET PO SCH (08:10)
[2018-04-19] MEDS: QUEtiapine 25 MG TABLET. PO SCH ×2 (08:10→13:17)
[2018-04-19] MEDS: hydroCHLOROthiazide 12.5 MG CAPSULE PO SCH (08:10)
[2018-04-19] MEDS: MUPIROCIN 2% TOPICAL OINTMENT 22GM TUBE. TP SCH (08:11)
[2018-04-19] MEDS: ACETAMINOPHEN 500 MG TABLET PO PRN (09:42)
--- NOTE | 2018-04-19 13:04 | DS ---
DATE OF DISCHARGE: 04/19/2018 HOSPITAL COURSE: A 72-year-old female came in with acute GI bleed, abdominal discomfort. The patient made good progress while in the hospital and bleeding stopped. CAT scan of that area did not demonstrate any acute problems and her hemoglobin remained basically stable, came down from 14 and probably dehydrated down to 12.7. The patient does not have any further bleeding. Blood sugars were under good control. PT/INR are basically unremarkable, had 03/25/2018 white blood cells. Cultures of urine are negative so far. In any case, the patient does for information a positive blood. In any case, the patient did not require any blood transfusions and will continue to be monitored as an outpatient. She will be making an appointment with Dr. Chandra and make further evaluation for a colonoscopy there. Otherwise; acute gastrointestinal bleed, abdominal pain, morbid obesity, type 2 diabetes, leukorrhea, elevated troponins. She was seen by Cardiology. She denies any chest pain, shortness of breath. Cardiology will follow up with her as an outpatient and consider an outpatient NPI after this acute situation as cleared up seen by Dr. Lao. AMARI BETHEA MD DR: JAYLIN/eze JOB#: [id number] / [id number]
[2018-04-20] MEDS ORDERED: metFORMIN 500 MG TABLET PO SCH (08:00)
--- NOTE | 2018-04-24 11:08 | HP ---
ADMIT DATE: 04/17/2018 HISTORY OF PRESENT ILLNESS: A 72-year-old female came in through the Emergency Room stating she has been having severe abdominal pain started after she thought she ate some bad food, but she did note she was having bright red blood coming from her rectum. She has had a history of diverticulosis. The patient noted the pain in the lower pelvic area, left and right with blood in the stool, teaspoon bright red blood. Otherwise, she was admitted for further evaluation of her abdominal pain and rectal bleeding. PAST MEDICAL HISTORY: Includes tonsillectomy, stroke, TIA, dementia, headache, anticoagulant on Plavix, hypercholesterolemia, sleep apnea, obesity, hysterectomy, urgency, hypothyroidism, bipolar disorder, depression, self-mutilation anemia in the past picking on the arms; vaccination for pneumococcal, vaccination up to date; she had a history of MRSA. FAMILY HISTORY: Father with some form of cancer. SOCIAL HISTORY: The patient recently , but does have good family support. She denies smoking, alcohol, or drug use. ALLERGIES: She has allergies to PENICILLIN, AMITRIPTYLINE, LACTOSE, AND PROCHLORPERAZINE. CODE STATUS: The patient is a full code. REVIEW OF SYSTEMS: The patient denies any headaches, visual change, blurred vision, or double vision. Denies chest pain or shortness of breath. Does have nausea, vomiting, and rectal bleeding and lower pelvic pain. She denies any problems more so than usual with her memory and alike. PHYSICAL EXAMINATION: GENERAL: This is an ill-appearing white female looking fairly ill. VITAL SIGNS: Blood pressure 140/77, pulse 80, she is afebrile, respiratory rate 20, oxygen saturation 95%. HEENT: The patient's head was atraumatic, normocephalic. Eyes: PERRLA without jaundice. Mouth and throat: Poor dentition. NECK: Supple, without JVD or thyromegaly. LUNGS: Diminished, but clear. CARDIOVASCULAR: Regular sinus rhythm, S1, S2, without murmur, rub, thrill, or extra heart sounds. ABDOMEN: Soft, diffuse tenderness primarily in the right and left lower quadrant area with some guarding, but no rebounding, positive bowel sounds. No hepatosplenomegaly. Stool hemoccult positive. EXTREMITIES: No clubbing or cyanosis. Trace edema. Degenerative changes noted in the musculoskeletal system. NEUROLOGIC: Alert and oriented, baseline for this patient in theory. LABORATORY DATA: White count 6, hemoglobin 15. The patient's electrolytes are basically stable, did have a slight elevation in her creatinine of 1.2, GFR 44. Troponin was slightly elevated at 0.06 and 0.068. IMPRESSIN AND PLAN: She was seen by Cardiology, Dr. Lao and made further evaluation will be done as an outpatient there. The patient otherwise made good progress during the rest of her hospitalization and there are no complications. She was treated for urinary tract infection, no Staphylococcus saprophyticus and she was placed on appropriate antibiotic therapy there. In any case, the patient made excellent progress during the rest of her hospitalization. She was discharged home. Impression therefore of abdominal pain, hematochezia, elevated troponin levels, urinary tract infection with Staphylococcus aureus, chronic kidney disease stage 3. The patient will be discharged home. Follow up as an outpatient. She was also positive for MRSA and treated with Bactroban. AMARI BETHEA MD DR: JAYLIN/eze JOB#: [id number] / [id number]
== END 2018-04-19 13:30 | disposition home or self-care (01) | DRG 377 ==
LOC: ER 17:58 → 1 SOUTH 18:00
PROVIDERS: ADMIT Family Medicine; ATTEND Family Medicine
DX: K62.5 Hemorrhage of anus and rectum (principal); N17.0 Acute kidney failure with tubular necrosis; N39.0 Urinary tract infection, site not specified; E78.5 Hyperlipidemia, unspecified; E66.01 Morbid (severe) obesity due to excess calories; E11.9 Type 2 diabetes mellitus without complications; F03.90 Unspecified dementia, unspecified severity, without behavioral disturbance, psychotic disturbance, mood disturbance, and anxiety; G47.33 Obstructive sleep apnea (adult) (pediatric); G43.909 Migraine, unspecified, not intractable, without status migrainosus; I10 Essential (primary) hypertension; E86.0 Dehydration; K21.9 Gastro-esophageal reflux disease without esophagitis; F41.9 Anxiety disorder, unspecified; F31.9 Bipolar disorder, unspecified; Z87.891 Personal history of nicotine dependence; Z86.73 Personal history of transient ischemic attack (TIA), and cerebral infarction without residual deficits; Z68.34 Body mass index [BMI] 34.0-34.9, adult; Z90.710 Acquired absence of both cervix and uterus; Z79.899 Other long term (current) drug therapy; Z88.0 Allergy status to penicillin; Z88.8 Allergy status to other drugs, medicaments and biological substances; Z90.49 Acquired absence of other specified parts of digestive tract; Z23 Encounter for immunization; N18.3 Chronic kidney disease, stage 3 (moderate)
CPT/HCPCS: 36415; 74022; 74177; 80048; 80061; 80076; 81001; 82150; 82274; 82550; 82947; 83690; 84484; 85025; 85610; 85730; 86850; 86900; 86901; 87086; 87186; 87641; 90471; 90756; 93005; 93306; 96361; 96374; 96375; J1650; J2405; J3490; J7120; Q0163; Q9966; Q9967; 97110; 97530; 99285-25; J7030; Q2035

== ENCOUNTER 2018-10-22 19:19 | Emergency (ER) | payer MEDICARE ==
[~2018-10-22] VITALS: Ht 152.4 cm; Wt 88.0 kg
[~2018-10-22 19:19] MED LIST changes: +ASPI81TA59 PO; +CARV6.2541 PO; +DIPH25CA58 PO; +DOCU-109 PO; +FERR240T11 PO
--- NOTE | 2018-10-22 19:38 | EKG ---
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
[2018-10-22] MEDS ORDERED: ASPIRIN 81 MG TAB.CHEW PO ONE (20:00)
[2018-10-22 20:03] LABS: HEMATOCRIT 39.4 % (36.0-47.0); HEMOGLOBIN 13.2 g/dL (12.0-15.5); RED BLOOD COUNT 4.13 x10^6/uL (3.50-5.40); RED CELL DISTRIBUTION WIDTH 13.5 % (11.5-14.5); WHITE BLOOD COUNT 6.7 x10^3/uL (4.0-11.0)
--- NOTE | 2018-10-22 20:05 | PHYS DOC ---
Past History Past Medical History: Anxiety, CVA, Diverticulitis, Diabetes, Hypertension, Other Past Surgical History: Hysterectomy Alcohol Use: None Drug Use: None Adult General Chief Complaint Chief Complaint: CHEST PAIN HPI HPI 72-year-old female presents with right-sided chest pain. The patient was lying down around 4-5 PM when she began to have chest discomfort. She describes it as a crampy sensation. This lasted for a couple of hours so she told her daughter who brought her in. The pain was 4 out of 10. By the time she arrived in the ED, she states that the pain is now gone. She denies shortness of breath or diaphoresis. She thinks it lasted for at least 3 hours. It did not seem to get worse with movement or exertion. She has no known cardiac history. She doesn't have blood pressure. She denies fever or chills. She did not take aspirin at home. He believes she's had a stress test in the past, but is not sure how long ago it was. Review of Systems Review of Systems Constitutional: Denies fever or chills [] Eyes: Denies change in visual acuity, redness, or eye pain [] HENT: Denies nasal congestion or sore throat [] Respiratory: Denies cough or shortness of breath [] Cardiovascular: No additional information not addressed in HPI [] GI: Denies abdominal pain, nausea, vomiting, bloody stools or diarrhea [] : Denies dysuria or hematuria [] Musculoskeletal: Denies back pain or joint pain [] Integument: Denies rash or skin lesions [] Neurologic: Denies headache, focal weakness or sensory changes [] Endocrine: Denies polyuria or polydipsia [] All other systems were reviewed and found to be within normal limits, except as documented in this note. Current Medications Current Medications Current Medications Medications (Trade) Dose Ordered Sig/Bira Start Time Stop Time Status Last Admin Dose Admin Aspirin (Children'S Aspirin) 324 mg 1X ONCE 10/22/18 20:00 10/22/18 20:01 UNV Allergies Allergies Allergies Coded Allergies Type Severity Reaction Last Updated Verified Penicillins Allergy Intermediate rash 03/03/14 Yes amitriptyline Allergy Intermediate rash 03/03/14 Yes lactose Allergy Intermediate GI UPSET 03/03/14 Yes prochlorperazine Allergy Intermediate muscle contraction 02/25/14 Yes I S O L A T I O N *CONTACT* Allergy Unknown 03/10/15 No Physical Exam Physical Exam Constitutional: Well developed, obese, well nourished, no acute distress, non- toxic appearance. [] HENT: Normocephalic, atraumatic, bilateral external ears normal, oropharynx moist, no oral exudates, nose normal. [] Eyes: PERRLA, EOMI, conjunctiva normal, no discharge. [] Neck: Normal range of motion, no tenderness, supple, no stridor. [] Cardiovascular:Heart rate regular rhythm, no murmur [] Lungs & Thorax: Bilateral breath sounds clear to auscultation [] Abdomen: Bowel sounds normal, soft, no tenderness, no masses, no pulsatile masses. [] Skin: Warm, dry, no erythema, no rash. [] Back: No tenderness, no CVA tenderness. [] Extremities: No tenderness, no cyanosis, no clubbing, ROM intact, no edema. [] Neurologic: Alert and oriented X 3, normal motor function, normal sensory fun ction, no focal deficits noted. [] Psychologic: Affect normal, judgement normal, mood normal. [] Current Patient Data Vital Signs Vital Signs Date Time Temp Pulse Resp B/P (MAP) Pulse Ox O2 Delivery O2 Flow Rate FiO2 10/22/18 19:41 78 16 135/86 (102) 95 Room Air 10/22/18 19:25 98.2 EKG EKG Sinus rhythm, rate 77, normal axis, no ST elevation or depression[] Radiology/Procedures Radiology/Procedures [] Impressions: Preliminary interpretation chest x-ray: No acute cardiopulmonary findings, moderate hiatal hernia, similar to previous from November 10, 2015. Course & Med Decision Making Course & Med Decision Making Pertinent Labs and Imaging studies reviewed. (See chart for details) The patient's labs are unremarkable except for slightly elevated creatinine of 1.4. Review of her chart shows her baseline is likely 1.2. Her troponin is negative. Her EKG is negative. Her chest x-rays negative for acute findings. It is similar to previous. She has a significant hiatal hernia. It is possible that this hernia was the cause of her pain either through direct pressure or reflux. Her Heart score is 3 due to age and hypertension history. The patient has continued to be pain-free in the ED. She is feeling better overall this time. I believe she can be safely discharged based on her heart score and the fact that she has support and family at home if her condition would change. I have stressed to the patient that if her symptoms resume she should come back to the emergency room. She has stated verbal understanding. She is stable for discharge at this time. [] Dragon Disclaimer Dragon Disclaimer This electronic medical record was generated, in whole or in part, using a voice recognition dictation system. Departure Departure: Impression: Primary Impression: Chest pain Disposition: HOME, SELF-CARE Condition: STABLE Referrals: AMARI BETHEA MD (PCP) Patient Instructions: Chest Pain (Nonspecific), Stzf-in-Hlkv, Hiatal Hernia Problem Qualifiers Primary Impression: Chest pain Chest pain type: unspecified Qualified Codes: R07.9 - Chest pain, unspecified SABINO PUENTES DO Oct 22, 2018 20:05
[2018-10-22 20:30] LABS: ALBUMIN 3.6 g/dL (3.4-5.0); ALBUMIN/GLOBULIN RATIO 1.1 (1.0-1.7); CALCIUM 9.6 mg/dL (8.5-10.1); CREATININE 1.4 mg/dL (0.6-1.0); GFR 37.1; POTASSIUM 3.8 mmol/L (3.5-5.1); TOTAL BILIRUBIN 0.3 mg/dL (0.2-1.0); TOTAL PROTEIN 6.8 g/dL (6.4-8.2)
[2018-10-22 20:54] VITALS: BP 137/48
--- NOTE | 2018-10-23 07:54 | RAD ---
CHEST AP ONLY History: Chest pain Comparison: April 17, 2018 Findings: Single view of the chest is submitted. There is a large hiatal hernia seen previously. Cardiac silhouette is similar. There is evidence for calcification near aortic arch. There is suspected emphysema. There is likely small left pleural effusion with adjacent mild airspace opacity. Impression: 1. There is suspected small left pleural effusion with adjacent atelectasis/infiltrate. There is likely emphysema. 2. There is again large hiatal hernia. Electronically signed by: Dereck Park MD (10/23/2018 7:51 AM) [facility]
== END 2018-10-22 21:12 | disposition home or self-care (01) ==
LOC: ER 19:19
DX: R07.89 Other chest pain (principal); F41.9 Anxiety disorder, unspecified; Z86.73 Personal history of transient ischemic attack (TIA), and cerebral infarction without residual deficits; E11.9 Type 2 diabetes mellitus without complications; I10 Essential (primary) hypertension; Z88.0 Allergy status to penicillin; Z88.8 Allergy status to other drugs, medicaments and biological substances; Z91.041 Radiographic dye allergy status
CPT/HCPCS: 36415; 71045; 80053; 84484; 85027; 93005; 99285

== ENCOUNTER 2019-11-20 14:19 | Inpatient (IN) | payer MEDICARE, OTHER ==
[~2019-11-20] VITALS: Ht 157.5 cm; Wt 79.6 kg
[~2019-11-20 14:19] MED LIST changes: +LISI1TAB37 PO; -LISI1TAB5 PO; +METF-658 PO; -METF500T9 PO; +SIMV40TA18 PO; -SIMV40TA3 PO
[2019-11-20 14:56] LABS: BGAS PH 7.45 (7.35-7.45)
--- NOTE | 2019-11-20 14:59 | EKG ---
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
--- NOTE | 2019-11-20 15:02 | RAD ---
CHEST AP ONLY Clinical indications: Shortness of breath. COMPARISON: October 22, 2018. Findings: Chronic interstitial lung is seen bilaterally. This is stable. Previously seen left-sided pleural effusion and left lung base infiltrate or atelectasis has cleared. No acute lung infiltrate or pleural effusion or pulmonary edema or lung mass or pneumothorax is seen. Hiatal hernia is again seen. The heart size, pulmonary vasculature, mediastinum and both yahaira are otherwise unremarkable. Scoliosis is seen. Impression: No acute radiographic abnormality is seen. Electronically signed by: Govind Chung MD (11/20/2019 2:59 PM) [id number]
[2019-11-20 15:11] LABS: BASO # 0.1 x10^3/uL (0.0-0.2); BASO % 1 % (0-3); EOS # 0.2 x10^3/uL (0.0-0.7); EOS % 4 % (0-3); HEMATOCRIT 39.4 % (36.0-47.0); HEMOGLOBIN 13.3 g/dL (12.0-15.5); LYMPH # 0.9 x10^3/uL (1.0-4.8); LYMPH % 17 % (24-48); MEAN CORPUSCULAR HEMOGLOBIN 32 pg (25-35); MEAN CORPUSCULAR HGB CONC 34 g/dL (31-37); MEAN CORPUSCULAR VOLUME 95 fL (79-100); MONO # 0.5 x10^3/uL (0.0-1.1); MONO % 8 % (0-9); NEUT # 3.8 x10^3uL (1.8-7.7); NEUT % 70 % (31-73); PLATELET COUNT 302 x10^3/uL (140-400); RED BLOOD COUNT 4.15 x10^6/uL (3.50-5.40); RED CELL DISTRIBUTION WIDTH 13.5 % (11.5-14.5); WHITE BLOOD COUNT 5.5 x10^3/uL (4.0-11.0)
[2019-11-20 15:18] LABS: CALCIUM 9.9 mg/dL (8.5-10.1); CREATININE 1.5 mg/dL (0.6-1.0); GFR 34.1; POTASSIUM 4.2 mmol/L (3.5-5.1)
[2019-11-20 15:29] LABS: BILIRUBIN,URINE NEG (NEG); CLARITY,URINE CLOUDY; COLOR,URINE YELLOW; GLUCOSE,URINE NEG (NEG); NITRITE,URINE NEG (NEG)
[2019-11-20 15:30] LABS: ALBUMIN 3.5 g/dL (3.4-5.0); TOTAL BILIRUBIN 0.5 mg/dL (0.2-1.0); TOTAL PROTEIN 7.1 g/dL (6.4-8.2)
[2019-11-20 15:30] LABS: BACTERIA,URINE MOD /HPF (0-FEW); SQUAMOUS EPITHELIAL CELL,UR OCC /LPF; WBC,URINE >40 /HPF (0-4)
[2019-11-20] MEDS ORDERED: IV NORMAL SALINE 1,000ML 1,000 ML IV ONE (16:30)
[2019-11-20] MEDS ORDERED: ONDANSETRON PF 4 MG/2 ML VIAL. IVP PRN (16:30)
--- NOTE | 2019-11-20 16:39 | PHYS DOC ---
Past History Past Medical History: Anxiety, CVA, Diverticulitis, Diabetes, Hypertension, UTI, Other Past Surgical History: Hysterectomy Alcohol Use: None Drug Use: None General Adult EDM: Chief Complaint: SHORTNESS OF BREATH HPI: HPI: Patient is a 73-year-old female with the early stages of dementia who presents from her primary doctor's office with low oxygen saturations. According to the family she is been weak not wanting to get up and around over the course of the last week. There is been no reported fever chills or sweats. There is been no shortness of breath cough or congestion. Patient denies any chest pain. There is no nausea or vomiting. After the patient was determined to be hypoxic at the primary care physician's office her oxygen saturation was in the 70s EMS was called and they placed her on 4 L improving her oxygen to mid 90s. [] Review of Systems: Review of Systems: Review of systems is unobtainable secondary to dementia Heart Score: Risk Factors: Risk Factors: DM, Current or recent (<one month) smoker, HTN, HLP, family history of CAD, obesity. Risk Scores: Score 0 - 3: 2.5% MACE over next 6 weeks - Discharge Home Score 4 - 6: 20.3% MACE over next 6 weeks - Admit for Clinical Observation Score 7 - 10: 72.7% MACE over next 6 weeks - Early Invasive Strategies Current Medications: Current Meds: Current Medications Medications (Trade) Dose Ordered Sig/Bria Start Time Stop Time Status Last Admin Dose Admin Ceftriaxone Sodium 1 gm/ Sodium Chloride 50 ml @ 100 mls/hr 1X ONCE 11/20/19 16:30 11/20/19 16:59 Ondansetron HCl (Zofran) 4 mg PRN Q4HRS PRN 11/20/19 16:30 11/21/19 16:29 Sodium Chloride 1,000 ml @ 125 mls/hr Q8H 11/20/19 16:21 11/21/19 16:20 Allergies: Allergies: Allergies Coded Allergies Type Severity Reaction Last Updated Verified Penicillins Allergy Intermediate rash 11/20/19 Yes amitriptyline Allergy Intermediate rash 11/20/19 Yes lactose Allergy Intermediate GI UPSET 11/20/19 Yes prochlorperazine Allergy Intermediate muscle contraction 11/20/19 Yes I S O L A T I O N *CONTACT* Allergy Unknown 03/10/15 No Physical Exam: PE: Constitutional: Well developed, well nourished, no acute distress, n appears acutely ill [] HENT: Normocephalic, atraumatic, bilateral external ears normal, oropharynx moist, no oral exudates, nose normal. [] Eyes: PERRLA, EOMI, conjunctiva normal, no discharge. [] Neck: Normal range of motion, no tenderness, supple, no stridor. [] Cardiovascular:Heart rate regular rhythm, no murmur [] Lungs & Thorax: Bilateral breath sounds clear to auscultation [] Abdomen: Bowel sounds normal, soft, no tenderness, no masses, no pulsatile masses. [] Skin: Warm, dry, no erythema, no rash. [] Back: No tenderness, no CVA tenderness. [] Extremities: No tenderness, no cyanosis, no clubbing, ROM intact, no edema. [] Neurologic: Alert and oriented X 3, normal motor function, normal sensory function, no focal deficits noted. [] Psychologic: Affect normal, judgement normal, mood normal. [] Current Patient Data: Labs: Laboratory Tests Test 11/20/19 14:35 11/20/19 14:46 11/20/19 14:55 White Blood Count 5.5 x10^3/uL (4.0-11.0) Red Blood Count 4.15 x10^6/uL (3.50-5.40) Hemoglobin 13.3 g/dL (12.0-15.5) Hematocrit 39.4 % (36.0-47.0) Mean Corpuscular Volume 95 fL (79-100) Mean Corpuscular Hemoglobin 32 pg (25-35) Mean Corpuscular Hemoglobin Concent 34 g/dL (31-37) Red Cell Distribution Width 13.5 % (11.5-14.5) Platelet Count 302 x10^3/uL (140-400) Neutrophils (%) (Auto) 70 % (31-73) Lymphocytes (%) (Auto) 17 % (24-48) L Monocytes (%) (Auto) 8 % (0-9) Eosinophils (%) (Auto) 4 % (0-3) H Basophils (%) (Auto) 1 % (0-3) Neutrophils # (Auto) 3.8 x10^3uL (1.8-7.7) Lymphocytes # (Auto) 0.9 x10^3/uL (1.0-4.8) L Monocytes # (Auto) 0.5 x10^3/uL (0.0-1.1) Eosinophils # (Auto) 0.2 x10^3/uL (0.0-0.7) Basophils # (Auto) 0.1 x10^3/uL (0.0-0.2) D-Dimer (L[place]) 0.45 mg/L (0.00-0.50) Sodium Level 133 mmol/L (136-145) L Potassium Level 4.2 mmol/L (3.5-5.1) Chloride Level 96 mmol/L (98-107) L Carbon Dioxide Level 30 mmol/L (21-32) Anion Gap 7 (6-14) Blood Urea Nitrogen 23 mg/dL (7-20) H Creatinine 1.5 mg/dL (0.6-1.0) H Estimated GFR (Cockcroft-Gault) 34.1 BUN/Creatinine Ratio 15 (6-20) Glucose Level 160 mg/dL (70-99) H Lactic Acid Level 1.0 mmol/L (0.4-2.0) Calcium Level 9.9 mg/dL (8.5-10.1) Total Bilirubin 0.5 mg/dL (0.2-1.0) Aspartate Amino Transferase (AST) 22 U/L (15-37) Alanine Aminotransferase (ALT) 32 U/L (14-59) Alkaline Phosphatase 201 U/L (46-116) H Troponin I Quantitative < 0.017 ng/mL (0-0.055) UJ-Orx-U-Type Natriuretic Peptide 756 pg/mL (0-124) H Total Protein 7.1 g/dL (6.4-8.2) Albumin 3.5 g/dL (3.4-5.0) Albumin/Globulin Ratio 1.0 (1.0-1.7) Blood pH 7.45 (7.35-7.45) Blood Gas PCO2 36 mmHg (35-45) Blood Gas PO2 213 mmHg (71-100) H Blood Gas HCO3 26 mmol/L (22-26) Arterial Bld O2 Saturation (Calc) 100 % (92-99) H FiO2 36 % Urine Collection Type U cath Urine Color Yellow Urine Clarity Cloudy Urine pH 5.5 Urine Specific [place] 1.025 Urine Protein 100 mg/dl (NEG-TRACE) Urine Glucose (UA) Neg mg/dL (NEG) Urine Ketones (Stick) Trace mg/dL (NEG) Urine Blood Mod (NEG) Urine Nitrite Neg (NEG) Urine Bilirubin Neg (NEG) Urine Urobilinogen Dipstick 1.0 mg/dL (0.2 mg/dL) Urine Leukocyte Esterase Large (NEG) Urine RBC 6-10 /HPF (0-2) Urine WBC >40 /HPF (0-4) Urine Squamous Epithelial Cells Occ /LPF Urine Bacteria Mod /HPF (0-FEW) Vital Signs: Vital Signs Date Time Temp Pulse Resp B/P (MAP) Pulse Ox O2 Delivery O2 Flow Rate FiO2 11/20/19 14:19 98.6 77 26 144/96 (112) 99 Nasal Cannula 4.0 EKG: EKG: [] Radiology/Procedures: Radiology/Procedures: [] Impressions: REASON: shortness of breath PROCEDURE: CHEST AP ONLY CHEST AP ONLY Clinical indications: Shortness of breath. COMPARISON: October 22, 2018. Findings: Chronic interstitial lung is seen bilaterally. This is stable. Previously seen left-sided pleural effusion and left lung base infiltrate or atelectasis has cleared. No acute lung infiltrate or pleural effusion or pulmonary edema or lung mass or pneumothorax is seen. Hiatal hernia is again seen. The heart size, pulmonary vasculature, mediastinum and both yahaira are otherwise unremarkable. Scoliosis is seen. Impression: No acute radiographic abnormality is seen. Course & Med Decision Making: Course & Med Decision Making Pertinent Labs and Imaging studies reviewed. (See chart for details) [ED course: Evaluation reveals a 73-year-old female with hypoxia and general malaise. It was found that she had a urinary tract infection here her d-dimer troponin and chest x-ray all were clear her EKG showed a normal sinus rhythm with a rate in the 80s with no ischemic ST-T changes she was given IV fluids and Rocephin during her stay here. I spoke with Dr. Rogers who agreed to accept the patient for admission.] Cory Disclaimer: Dragtressa Disclaimer: This electronic medical record was generated, in whole or in part, using a voice recognition dictation system. Departure Departure: Impression: Primary Impression: Urinary tract infection Qualified Codes: N30.00 - Acute cystitis without hematuria Additional Impression: Hypoxia Disposition: ADMITTED INPATIENT Admitting Physician: Amari Baker Condition: GUARDED Referrals: AMARI BAKER MD (PCP) Justification of Admission: Justification of Admission: Justification of Admission Dx: Yes Comments: Hypoxia, urinary tract infection WEI HYDE DO Nov 20, 2019 16:39
[2019-11-20] MEDS ORDERED: IV NORMAL SALINE 50ML 50 ML ONE (16:41)
[2019-11-20] MEDS ORDERED: cefTRIAXone SODIUM 1 GM VIAL ONE (16:41)
[2019-11-20] MEDS: IV NORMAL SALINE 1,000ML 1,000 ML IV SCH (16:53)
[2019-11-20] MEDS ORDERED: CLON-276 PO (18:22)
--- NOTE | 2019-11-20 18:42 | NUR ---
NSG NOTE; ADMISSION ADMIT TO ROOM 123 AT 1840 VIA CART ACCOMP BY EMS PERSONNEL. PT HAD GONE TO DR BETHEA'S OFFICE FOR INCREASING WEAKNESS AND THEY FOUND AT O2 SAT IN THE 70s SO SHE WAS SENT TO THE ED BY EMS.
[2019-11-20 18:47] VITALS: BP 180/86
[2019-11-20] MEDS ORDERED: clonazePAM 0.5 MG TABLET PO PRN (20:30)
[2019-11-20] MEDS ORDERED: DOCUSATE SODIUM 100 MG CAPSULE PO PRN (20:30)
[2019-11-20] MEDS ORDERED: levoFLOXacin PER PHARMACY 1 EACH. MC SCH (21:00)
[2019-11-20] MEDS: SIMVASTATIN 40 MG TABLET. PO SCH (22:21)
[2019-11-20] MEDS: LACTOBACILLUS RHAMNOSUS GG 1 CAPSULE. PO SCH (22:21)
[2019-11-20] MEDS: diphenhydrAMINE HCL 25 MG CAPSULE PO SCH (22:21)
[2019-11-20] MEDS: busPIRone 10 MG TABLET. PO SCH (22:21)
[2019-11-20] MEDS: rOPINIRole 0.5 MG TABLET. PO SCH (22:21)
[2019-11-20] MEDS: cloNIDine HCL 0.2 MG TABLET PO SCH (22:22)
[2019-11-20] MEDS: QUEtiapine 25 MG TABLET. PO SCH (22:22)
[2019-11-20 23:34] VITALS: BP 146/74
--- NOTE | 2019-11-21 01:16 | NUR ---
received report at 1900 from nurse. pt was on floor before my arrival. Upon assessment pt had an elevated BP with no shortness of air. pt was able to speak of any concerns she had. pt did advise me to call her daughter Garrick for any medication question. pt has been calm and cooperative with all intervention this evening.
[2019-11-21 02:09] VITALS: BP 107/42
[2019-11-21] MEDS ORDERED: BUTALB/APAP/CAFEIN 50/325/40MG TABLET. PO PRN (02:15)
[2019-11-21] MEDS: IV NORMAL SALINE 1,000ML 1,000 ML IV SCH ×2 (02:57→10:48)
[2019-11-21 07:01] LABS: BASO # 0.1 x10^3/uL (0.0-0.2); BASO % 1 % (0-3); EOS # 0.2 x10^3/uL (0.0-0.7); EOS % 4 % (0-3); HEMATOCRIT 35.5 % (36.0-47.0); HEMOGLOBIN 11.9 g/dL (12.0-15.5); LYMPH # 1.3 x10^3/uL (1.0-4.8); LYMPH % 24 % (24-48); MEAN CORPUSCULAR HEMOGLOBIN 32 pg (25-35); MEAN CORPUSCULAR HGB CONC 33 g/dL (31-37); MEAN CORPUSCULAR VOLUME 96 fL (79-100); MONO # 0.6 x10^3/uL (0.0-1.1); MONO % 12 % (0-9); NEUT # 3.2 x10^3uL (1.8-7.7); NEUT % 59 % (31-73); PLATELET COUNT 266 x10^3/uL (140-400); RED BLOOD COUNT 3.71 x10^6/uL (3.50-5.40); RED CELL DISTRIBUTION WIDTH 13.9 % (11.5-14.5); WHITE BLOOD COUNT 5.3 x10^3/uL (4.0-11.0)
[2019-11-21 07:19] LABS: ALBUMIN 2.6 g/dL (3.4-5.0); ALBUMIN/GLOBULIN RATIO 0.9 (1.0-1.7); CALCIUM 8.6 mg/dL (8.5-10.1); CREATININE 1.3 mg/dL (0.6-1.0); GFR 40.3; TOTAL BILIRUBIN 0.2 mg/dL (0.2-1.0); TOTAL PROTEIN 5.6 g/dL (6.4-8.2)
[2019-11-21 07:34] VITALS: BP 122/62
[2019-11-21] MEDS: CLOPIDOGREL BISULFATE 75 MG TABLET PO SCH (08:36)
[2019-11-21] MEDS: ASPIRIN CHEWABLE 81 MG TABLET. PO SCH (08:36)
[2019-11-21] MEDS: CARVEDILOL 6.25 MG TABLET PO SCH ×2 (08:37→16:48)
[2019-11-21] MEDS: metFORMIN XR 500 MG TAB.ER.24H PO SCH ×2 (08:37→16:48)
[2019-11-21] MEDS: QUEtiapine 25 MG TABLET. PO SCH ×3 (08:40→20:17)
[2019-11-21] MEDS: FERROUS SULFATE 325 MG TABLET. PO SCH (08:40)
[2019-11-21] MEDS: PANTOPRAZOLE 40 MG TABLET. PO SCH (08:40)
[2019-11-21] MEDS: FLUoxetine HCL 20 MG CAPSULE PO SCH (08:40)
[2019-11-21] MEDS: rOPINIRole 0.5 MG TABLET. PO SCH ×3 (08:40→20:17)
[2019-11-21] MEDS: cloNIDine HCL 0.2 MG TABLET PO SCH ×2 (08:40→20:18)
[2019-11-21] MEDS ORDERED: hydroCHLOROthiazide 12.5 MG CAPSULE PO SCH (09:00)
[2019-11-21] MEDS: busPIRone 10 MG TABLET. PO SCH ×3 (09:04→20:18)
[2019-11-21] MEDS: LACTOBACILLUS RHAMNOSUS GG 1 CAPSULE. PO SCH ×2 (09:04→20:17)
[2019-11-21 10:16] VITALS: BP 123/63
[2019-11-21] MEDS ORDERED: ONDANSETRON ODT 4 MG TAB.RAPDIS PO PRN (11:30)
[2019-11-21 11:32] VITALS: BP 140/74
[2019-11-21 15:51] VITALS: BP 99/61
[2019-11-21] MEDS: diphenhydrAMINE HCL 25 MG CAPSULE PO SCH (20:17)
[2019-11-21] MEDS: SIMVASTATIN 40 MG TABLET. PO SCH (20:17)
[2019-11-21 21:30] VITALS: BP 169/90
--- NOTE | 2019-11-21 22:28 | PN ---
DATE: SUBJECTIVE: A 73-year-old female came in the office, was extremely short of breath, came in through the Emergency Room, was found to have a possible septic protocol. She had greater than 40 white blood cells per high powered field. OBJECTIVE: VITAL SIGNS: Her respiratory rate was up to 26 and blood pressure was 144/96. Her oxygen saturation in the office was in the 70 percentile range. In any case, the patient is resting comfortably, seems to be making fairly good progress at the present time. Blood pressures have come down to 114/65, respiratory rate 20, pulse 78, afebrile, 96.5. GENERAL: The patient otherwise is alert and oriented. LUNGS: Diminished throughout, but basically clear. CARDIOVASCULAR: Regular sinus rhythm. ABDOMEN: Soft, nontender. Urine shows greater than 100,000 of Staph aureus Patient to continue on IV antibiotic therapy and make further evaluation on her as indicated and monitor her other vital signs and respiratory effort as she progresses ____ illness. IMPRESSION: Acute respiratory distress, SIRS, urinary tract infection, anemia of unknown etiology, severe protein malnutrition. COVID-19 negative. AMARI BETHEA MD DR: JAYLIN/eze JOB#: [id number] / [id number]
[2019-11-22 06:37] VITALS: BP 134/67
[2019-11-22 08:45] LABS: BASO # 0.1 x10^3/uL (0.0-0.2); BASO % 1 % (0-3); EOS # 0.6 x10^3/uL (0.0-0.7); EOS % 11 % (0-3); HEMATOCRIT 32.3 % (36.0-47.0); HEMOGLOBIN 10.7 g/dL (12.0-15.5); LYMPH # 1.1 x10^3/uL (1.0-4.8); LYMPH % 18 % (24-48); MEAN CORPUSCULAR HEMOGLOBIN 32 pg (25-35); MEAN CORPUSCULAR HGB CONC 33 g/dL (31-37); MEAN CORPUSCULAR VOLUME 96 fL (79-100); MONO # 0.6 x10^3/uL (0.0-1.1); MONO % 9 % (0-9); NEUT # 3.6 x10^3uL (1.8-7.7); NEUT % 61 % (31-73); PLATELET COUNT 256 x10^3/uL (140-400); RED BLOOD COUNT 3.37 x10^6/uL (3.50-5.40); RED CELL DISTRIBUTION WIDTH 13.4 % (11.5-14.5); WHITE BLOOD COUNT 5.9 x10^3/uL (4.0-11.0)
[2019-11-22 08:46] LABS: CALCIUM 8.6 mg/dL (8.5-10.1); CREATININE 1.2 mg/dL (0.6-1.0); GFR 44.2; POTASSIUM 4.2 mmol/L (3.5-5.1)
[2019-11-22] MEDS: ASPIRIN CHEWABLE 81 MG TABLET. PO SCH (09:11)
[2019-11-22] MEDS: FERROUS SULFATE 325 MG TABLET. PO SCH (09:11)
[2019-11-22] MEDS: metFORMIN XR 500 MG TAB.ER.24H PO SCH (09:11)
[2019-11-22] MEDS: cloNIDine HCL 0.2 MG TABLET PO SCH (09:11)
[2019-11-22] MEDS: QUEtiapine 25 MG TABLET. PO SCH (09:11)
[2019-11-22] MEDS: busPIRone 10 MG TABLET. PO SCH (09:11)
[2019-11-22] MEDS: LACTOBACILLUS RHAMNOSUS GG 1 CAPSULE. PO SCH (09:11)
[2019-11-22] MEDS: rOPINIRole 0.5 MG TABLET. PO SCH (09:11)
[2019-11-22] MEDS: CLOPIDOGREL BISULFATE 75 MG TABLET PO SCH (09:12)
[2019-11-22] MEDS: CARVEDILOL 6.25 MG TABLET PO SCH (09:12)
[2019-11-22] MEDS: PANTOPRAZOLE 40 MG TABLET. PO SCH (09:12)
[2019-11-22] MEDS: FLUoxetine HCL 20 MG CAPSULE PO SCH (09:12)
[2019-11-22 10:55] VITALS: BP 125/71
[2019-11-22] MEDS ORDERED: NITR100C62 PO (11:20)
--- NOTE | 2019-12-01 16:45 | DS ---
DATE OF DISCHARGE: 11/22/2019 HOSPITAL COURSE: A 73-year-old female came in through the Emergency Room extremely short of breath, had greater than 40 white blood cells per high powered field. The patient's white count was markedly elevated. Patient had multiple white blood cells in her urine. Her urine culture grew out Staphylococcus aureus. She was placed on appropriate antibiotic therapy and the patient made excellent progress during the rest of her hospitalization. Her blood pressure had dropped down into the 97/36, but then came up to 180/86. The patient made excellent progress on the antibiotic therapy and she was discharged home for followup as an outpatient. IMPRESSION: Systemic inflammatory response syndrome, urinary tract infection with Staphylococcus aureus. COVID-19 negative. She had MRSA on her nares. The patient was discharged with followup with oral antibiotics. She is also a type 2 diabetic, severe protein malnutrition and she will be followed up as an outpatient in the outpatient clinic. She will be on a diabetic diet and the like. AMARI BETHEA MD DR: JAYLIN/eze JOB#: [id number] / [id number]
== END 2019-11-22 12:34 | disposition home or self-care (01) | DRG 682 ==
LOC: ER 14:19 → 1 SOUTH 18:04
PROVIDERS: ADMIT Family Medicine; ATTEND Family Medicine
DX: N17.0 Acute kidney failure with tubular necrosis (principal); E43 Unspecified severe protein-calorie malnutrition; N30.00 Acute cystitis without hematuria; R65.10 Systemic inflammatory response syndrome (SIRS) of non-infectious origin without acute organ dysfunction; R06.03 Acute respiratory distress; D64.9 Anemia, unspecified; E11.9 Type 2 diabetes mellitus without complications; F03.90 Unspecified dementia, unspecified severity, without behavioral disturbance, psychotic disturbance, mood disturbance, and anxiety; F41.9 Anxiety disorder, unspecified; I10 Essential (primary) hypertension; R09.02 Hypoxemia; Z20.828 Contact with and (suspected) exposure to other viral communicable diseases; Z88.8 Allergy status to other drugs, medicaments and biological substances; Z86.73 Personal history of transient ischemic attack (TIA), and cerebral infarction without residual deficits; Z90.710 Acquired absence of both cervix and uterus; Z68.32 Body mass index [BMI] 32.0-32.9, adult; Z88.0 Allergy status to penicillin; Z79.899 Other long term (current) drug therapy
CPT/HCPCS: 36415; 36600; 71045; 80048; 80053; 81001; 82803; 82947; 83605; 83880; 84484; 85025; 85379; 87040; 87086; 87641; 93005; 96365; J0696; J1956; J2405; P9612; Q0163; 99285-25; J7030; U0003-CS

== ENCOUNTER 2020-01-09 16:19 | Emergency (ER) | payer MEDICARE, OTHER ==
[~2020-01-09] VITALS: Ht 157.5 cm; Wt 79.0 kg
[~2020-01-09 16:19] MED LIST changes: +CLON-276 PO; +NITR100C62 PO
[2020-01-09] MEDS ORDERED: ACETAMINOPHEN 500 MG TABLET PO ONE (16:30)
--- NOTE | 2020-01-09 17:19 | RAD ---
CHEST PA LATERAL History: Reason: pulse ox malfunction / Spl. Instructions: / History: Comparison: November 20, 2019 Findings: Small left pleural effusion. Moderate hiatal hernia. Mild cardiomegaly. Mild interstitial thickening, unchanged and likely related to chronic interstitial changes. No pneumothorax. Small nodular opacities. Right midlung measuring approximately 3 to 4 mm, not definitely seen previously. Impression: 1. Small nodular opacities projecting over the right midlung, may represent summation artifact or nodules and can be seen with infectious or inflammatory process in the acute setting. Recommend short-term follow-up. 2. Small left pleural effusion. 3. Moderate hiatal hernia. Electronically signed by: Be Henriquez DO (01/09/2020 5:16 PM) [facility]
--- NOTE | 2020-01-09 17:30 | PHYS DOC ---
Past History Past Medical History: Anxiety, CVA, Diverticulitis, Diabetes, Hypertension, UTI, Other Past Surgical History: Hysterectomy Alcohol Use: None Drug Use: None General Adult EDM: Chief Complaint: HEADACHE HPI: HPI: 74 yo F past medical history of CVA, hypertension and migraine headaches, presents to the ED after daughter, patient's home health care provider whom patient lives with, checked patient's oxygen level, pulse ox was not working and was concerned for COVID so she sent patient to the ER. Patient states this happened approximately 1 month ago. Patient states upon arrival in the ED she had a gradual onset diffuse migraine headache that she normally takes Excedrin Migraine for (reports this is her typical migraine headache). Patient is stating " I just want to go home." States she didn't have a appetite and daughter was worried for "covert, or whatever that pandemic is." Agrees for imaging at this time. Patient reports last night she felt " blocked up," described as constipated but had a normal bowel movement, woke up feeling fine today with no abdominal or back pain. Review of systems: Denies associated fever, chills, blurry vision, speech changes, facial droop, weakness or sensory changes, difficulties walking, sore throat, cough, chest pain or pressure, dyspnea, hemoptysis, nausea, vomiting, diarrhea, back pain, leg swelling, rash, abdominal pain, back pain, dysuria, hematuria, melena, hematochezia, hematemesis or hemoptysis. Heart Score: Risk Factors: Risk Factors: DM, Current or recent (<one month) smoker, HTN, HLP, family his tory of CAD, obesity. Risk Scores: Score 0 - 3: 2.5% MACE over next 6 weeks - Discharge Home Score 4 - 6: 20.3% MACE over next 6 weeks - Admit for Clinical Observation Score 7 - 10: 72.7% MACE over next 6 weeks - Early Invasive Strategies Current Medications: Current Meds: Current Medications Medications (Trade) Dose Ordered Sig/Bria Start Time Stop Time Status Last Admin Dose Admin Acetaminophen (Tylenol) 1,000 mg 1X ONCE 01/09/20 16:30 01/09/20 16:33 DC Allergies: Allergies: Allergies Coded Allergies Type Severity Reaction Last Updated Verified Penicillins Allergy Intermediate rash 11/20/19 Yes amitriptyline Allergy Intermediate rash 11/20/19 Yes lactose Allergy Intermediate GI UPSET 11/20/19 Yes prochlorperazine Allergy Intermediate muscle contraction 11/20/19 Yes I S O L A T I O N *CONTACT* Allergy Unknown 03/10/15 No Physical Exam: PE: Constitutional: Well developed, well nourished, no acute distress, non-toxic appearance. [] HENT: Normocephalic, atraumatic, bilateral external ears normal, oropharynx dry Eyes: left pupil 4mm and right pupil 3mm both reactive, EOMI, conjunctiva normal, no discharge. [] Neck: Normal range of motion, no tenderness, supple, no stridor. [] Cardiovascular:Heart rate regular rhythm, no murmur [] Lungs & Thorax: Bilateral breath sounds clear to auscultation [] Abdomen: Bowel sounds normal, soft, no tenderness, no masses, no pulsatile masses. [] Skin: Warm, dry, no erythema, no rash. [] Back: No tenderness, no CVA tenderness. [] Extremities: No tenderness, no cyanosis, no clubbing, ROM intact, no edema. [] Neurologic: Alert and oriented X 3, normal motor function, normal sensory function, no focal deficits noted, CN2-12 intact, no ataxia Psychologic: Affect normal, judgement normal, mood normal. [] EKG: EKG: [] Radiology/Procedures: Radiology/Procedures: []IMAGING REPORT Signed PATIENT: ESDRAS FERRIS ACCOUNT: [id number] : 1945 LOCATION: ER AGE: 74 SEX: F EXAM STATUS: REG ER ORD. PHYSICIAN: SHAYE WATTS DO REASON: pulse ox malfunction PROCEDURE: CHEST PA & LATERAL CHEST PA LATERAL History: Reason: pulse ox malfunction / Spl. Instructions: / History: Comparison: November 20, 2019 Findings: Small left pleural effusion. Moderate hiatal hernia. Mild cardiomegaly. Mild interstitial thickening, unchanged and likely related to chronic interstitial changes. No pneumothorax. Small nodular opacities. Right midlung measuring approximately 3 to 4 mm, not definitely seen previously. Impression: 1. Small nodular opacities projecting over the right midlung, may represent summation artifact or nodules and can be seen with infectious or inflammatory process in the acute setting. Recommend short-term follow-up. 2. Small left pleural effusion. 3. Moderate hiatal hernia. Electronically signed by: Be Henriquez DO (01/09/2020 5:16 PM) [facility] DICTATED AND SIGNED BY: BE HENRIQUEZ DO DATE: 01/09/20 1716 CC: AMARI BETHEA MD; SHAYE WATTS DO ~ IMAGING REPORT Signed PATIENT: ESDRAS FERRIS ACCOUNT: [id number] : 1945 LOCATION: ER AGE: 74 SEX: F EXAM STATUS: REG ER ORD. PHYSICIAN: SHAYE WATTS DO REASON: headache, anisocoria PROCEDURE: CT HEAD WO CONTRAST CT Head W/O Contrast: History: Reason: headache, anisocoria / Spl. Instructions: / History: Comparison: none Axial images were obtained without contrast. There is moderate diffuse atrophy. There is no mass effect, extraaxial fluid collections or hydrocephalus. There is no gross bleed. Marked, patchy periventricular and subcortical white matter hypoattenuation is seen. There is old occipital parietal lobe strokes bilaterally. Patchy hypoattenuation in the thalamus is seen bilaterally. There is patchy opacity in the sharita. There is no focal loss of abbasi-white matter distinction to suggest acute ischemia, i.e. stroke. Impression: 1. Diffuse atrophy and chronic white matter changes. 2. Old cortical strokes posteriorly bilaterally. 3. Hypoattenuating lesions in the thalamus could be additional chronic small vessel disease or could be old infarcts. 4. Hypoattenuation in the sharita could be old infarcts or central pontine myelolysis but is likely old. 5. No acute findings. End impression PQRS Compliance Statement: One or more of the following individualized dose reduction techniques were utilized for this examination: 1. Automated exposure control 2. Adjustment of the mA and/or kV according to patient size 3. Use of iterative reconstruction technique Electronically signed by: Demetra Parkinson III, MD (01/09/2020 6:09 PM) [facility] DICTATED AND SIGNED BY: DEMETRA PARKINSON III, MD DATE: 01/09/20 6001 CC: AMARI BETHEA MD; SHAYE WATTS DO ~ Course & Med Decision Making: Course & Med Decision Making Pertinent Labs and Imaging studies reviewed. (See chart for details) Concern for pulse oximeter malfunction. Chest x-ray concerning for small nodules are right midlung that could be artifact versus infectious versus inflammatory, not seen on November chest x-ray. Patient with no active shortness of breath, cough, sore throat or upper respiratory infection. Pt afebrile, 96% on room air, speaking in full sentences when ambulating, and in no respiratory distress. Due to anisocoria (pt never told her pupils were unequal), CT head performed that showed no acute finding, chronic old ischemia, possible sharita infarct, patient with no ataxia. Pt with NIHSS 0, CN2-12 intact with no neurologic complaints. Will dc and strict ed return precautions for n/v, severe headache, fever/cough/dyspnea or neuro deficits. Encouraged urgent outpatient follow-up with PMD and neurology. Life-threatening processes were considered but are low suspicion at this time, given history and physical exam. Pt was educated on all prescription medications and adverse effects. All patient's questions were answered and pt was stable at time of discharge. Differential includes meningitis, encephalitis, intracranial hemorrhage, obstructive hydrocephaly, CVA, carbon oxide poisoning, cerebral or cavernous venous thrombosis, hypertensive emergency, preeclampsia, giant cell arteritis, glaucoma, carotid or vertebral artery dissection, superior vena cava syndrome, infection, space-occupying lesions I spoken with the patient and her caregivers. I explained the patient's condition, diagnoses and treatment plan based on the information available to me at this time. I have answered the patient and her caregiver's questions and addressed any concerns. The patient and her caregivers have a good understanding of patient's diagnosis, condition and treatment plan as can be expected at this point. Vital signs have been stable. Patient's condition is stable and appropriate for discharge from the emergency department. Patient will pursue further outpatient evaluation with primary care physician or other designated or consulting physician as outlined in the discharge instructions. The patient and/or caregivers are agreeable to this plan of care and follow-up instructions have been explained in detail. The patient and/or c aregivers have received these instructions in written form and have expressed an understanding of the discharge instructions. The patient and/or caregivers are aware that any significant change of condition or worsening of symptoms should prompt immediate return to this or the closest emergency department or call to [email or web address] Ray Disclaimer: Cory Disclaimer: This electronic medical record was generated, in whole or in part, using a voice recognition dictation system. Departure Departure: Impression: Primary Impression: Headache Additional Impression: Anisocoria Disposition: 01 HOME/RESIDENCE PRIOR TO ADM Condition: STABLE Referrals: AMARI BETHEA MD (PCP) Patient Instructions: Migraine Headache Additional Instructions: Bogdan Singh MD Neurology Bogdan Singh MD Address: [address] [place] [address] Justification of Admission: Justification of Admission: Justification of Admission Dx: N/A SHAYE WATTS DO Jan 09, 2020 17:30
[2020-01-09 17:51] VITALS: BP 127/71
--- NOTE | 2020-01-09 18:12 | RAD ---
CT Head W/O Contrast: History: Reason: headache, anisocoria / Spl. Instructions: / History: Comparison: none Axial images were obtained without contrast. There is moderate diffuse atrophy. There is no mass effect, extraaxial fluid collections or hydrocephalus. There is no gross bleed. Marked, patchy periventricular and subcortical white matter hypoattenuation is seen. There is old occipital parietal lobe strokes bilaterally. Patchy hypoattenuation in the thalamus is seen bilaterally. There is patchy opacity in the sharita. There is no focal loss of abbasi-white matter distinction to suggest acute ischemia, i.e. stroke. Impression: 1. Diffuse atrophy and chronic white matter changes. 2. Old cortical strokes posteriorly bilaterally. 3. Hypoattenuating lesions in the thalamus could be additional chronic small vessel disease or could be old infarcts. 4. Hypoattenuation in the sharita could be old infarcts or central pontine myelolysis but is likely old. 5. No acute findings. End impression PQRS Compliance Statement: One or more of the following individualized dose reduction techniques were utilized for this examination: 1. Automated exposure control 2. Adjustment of the mA and/or kV according to patient size 3. Use of iterative reconstruction technique Electronically signed by: Frank Arias III, MD (01/09/2020 6:09 PM) [facility]
== END 2020-01-09 18:55 | disposition home or self-care (01) ==
LOC: ER 16:19
DX: G43.909 Migraine, unspecified, not intractable, without status migrainosus (principal); H57.02 Anisocoria; I10 Essential (primary) hypertension; F41.9 Anxiety disorder, unspecified; E11.9 Type 2 diabetes mellitus without complications; Z86.73 Personal history of transient ischemic attack (TIA), and cerebral infarction without residual deficits; Z87.440 Personal history of urinary (tract) infections; Z88.0 Allergy status to penicillin; Z88.8 Allergy status to other drugs, medicaments and biological substances; Z91.011 Allergy to milk products
CPT/HCPCS: 70450; 71046; 99284-25